=== PATIENT | male | born 1960 | race Caucasian/White ===

== ENCOUNTER 2016-11-19 16:34 | Emergency (ER) | payer MEDICARE, OTHER ==
[~2016-11-19] VITALS: Ht 185.4 cm; Wt 77.1 kg
[~2016-11-19 16:34] MED LIST: BACLOFEN10 MG PO; CARDIZEM60 MG PO; CARISOPRODOL350 MG PO; CARVEDILOL6.25 MG PO; DURAGESIC1 EAC1 TD; EPZICOM TABLET1 EACH PO; ESZOPICLONE3 MG PO; FENTANYL1 EAC1 TD; HYDROCODON-ACE1 EAC8 PO; MELOXICAM15 MG PO; METHYLPREDNISOLO4 M1 PO; NICOTINE PATCH1 EACH TD; NORVIR100 MG PO; OMEPRAZOLE20 MG PO; OXYCODONE HCL5 MG PO; PREZISTA400 MG PO; PREZISTA800 MG PO; RESTORIL15 MG PO; SOMA350 MG PO; TEMAZEPAM15 MG PO; TRIUMEQ TABLET1 EACH PO; ZOFRAN ODT4 MG SL
[2016-11-19] MEDS ORDERED: CARVEDILOL6.25 MG PO (16:46)
[2016-11-19] MEDS ORDERED: COREG3.125 MG PO (18:08)
--- NOTE | 2016-11-20 18:36 | EKG ---
[facility] [address] [place] [address] Signed Normal sinus rhythm with sinus arrhythmia Normal ECG When compared with ECG of 19-MAR-2016 01:03, Vent. rate has increased BY 42 BPM Confirmed by JOHNNIE RAMOS MD ([id number]) on 11/20/2016 6:36:34 PM Electronically Signed By: JOHNNIE RAMOS MD 11/20/16 1836 PATIENT NAME: RONANLEATHAKAYLEE THOMPSON Electrocardiogram DATE OF : 62 PHYSICIAN: JOHNNIE RAMOS MD REPORT #: [id number] REPORT IS CONFIDENTIAL AND NOT TO BE RELEASED WITHOUT AUTHORIZATION
== END 2016-11-19 18:20 | disposition home or self-care (01) ==
LOC: ED 16:34
DX: R07.2 Precordial pain (principal); I48.91 Unspecified atrial fibrillation; Z21 Asymptomatic human immunodeficiency virus [HIV] infection status; F17.200 Nicotine dependence, unspecified, uncomplicated; Z88.8 Allergy status to other drugs, medicaments and biological substances; Z79.891 Long term (current) use of opiate analgesic; Z79.899 Other long term (current) drug therapy
CPT/HCPCS: 71010; 80053; 84484; 85025; 93005; 93010; 96361; 96374; 99284; J2405; J7030

== ENCOUNTER 2017-01-09 15:14 | Emergency (ER) | payer MEDICARE, OTHER ==
[~2017-01-09] VITALS: Ht 185.4 cm; Wt 77.1 kg
[~2017-01-09 15:14] MED LIST changes: +COREG3.125 MG PO
[2017-01-09] MEDS ORDERED: TIZANIDINE HCL2 MG PO (15:25)
[2017-01-09] MEDS ORDERED: CYANOCOBAL1000 MCG/M IM (15:27)
== END 2017-01-09 17:08 | disposition home or self-care (01) ==
LOC: ED 15:14
DX: R10.12 Left upper quadrant pain (principal); B20 Human immunodeficiency virus [HIV] disease; I48.91 Unspecified atrial fibrillation; F17.200 Nicotine dependence, unspecified, uncomplicated; Z88.8 Allergy status to other drugs, medicaments and biological substances; Z79.899 Other long term (current) drug therapy
CPT/HCPCS: 74000; 80053; 83690; 85025; 96374; 99283; J2405

== ENCOUNTER 2017-04-22 20:20 | Emergency (ER) | payer MEDICARE, OTHER ==
[~2017-04-22] VITALS: Ht 185.4 cm; Wt 69.8 kg
[~2017-04-22 20:20] MED LIST changes: +CYANOCOBAL1000 MCG/M IM; +TIZANIDINE HCL2 MG PO
[2017-04-22] MEDS ORDERED: ZENPEP DR 20,01 EACH PO (20:35)
[2017-04-22] MEDS ORDERED: MIRTAZAPINE30 MG PO (20:35)
[2017-04-22] MEDS ORDERED: AUGMENTIN 875-1 EACH PO (22:32)
== END 2017-04-22 22:54 | disposition home or self-care (01) ==
LOC: ED 20:20
DX: K57.92 Diverticulitis of intestine, part unspecified, without perforation or abscess without bleeding (principal); I48.91 Unspecified atrial fibrillation; F17.200 Nicotine dependence, unspecified, uncomplicated; Z88.8 Allergy status to other drugs, medicaments and biological substances; Z79.899 Other long term (current) drug therapy
CPT/HCPCS: 74177; 80053; 81001; 83690; 85025; 96360; 99284; J7030; Q9967

== ENCOUNTER 2017-07-28 17:11 | Emergency (ER) | payer MEDICARE, OTHER ==
[~2017-07-28] VITALS: Ht 185.4 cm; Wt 74.8 kg
[~2017-07-28 17:11] MED LIST changes: +AUGMENTIN 875-1 EACH PO; +MIRTAZAPINE30 MG PO; +ZENPEP DR 20,01 EACH PO
--- NOTE | 2017-07-29 18:31 | EKG ---
[facility] [address] [facility] [place] [address] Signed Normal sinus rhythm Normal ECG When compared with ECG of 19-NOV-2016 16:42, No significant change was found Confirmed by RADHA JARAMILLO MD ([id number]) on 07/29/2017 6:31:01 PM Electronically Signed By: RADHA JARAMILLO MD 07/29/17 183 PATIENT NAME: LEATHA FERRARO DONNA Electrocardiogram DATE OF : 62 PHYSICIAN: RADHA JARAMILLO MD REPORT #: [id number] REPORT IS CONFIDENTIAL AND NOT TO BE RELEASED WITHOUT AUTHORIZATION
== END 2017-07-28 19:26 | disposition home or self-care (01) ==
LOC: ED 17:11
DX: R07.89 Other chest pain (principal); B20 Human immunodeficiency virus [HIV] disease; F17.200 Nicotine dependence, unspecified, uncomplicated; Z88.6 Allergy status to analgesic agent; Z88.8 Allergy status to other drugs, medicaments and biological substances; Z79.899 Other long term (current) drug therapy
CPT/HCPCS: 71045; 80053; 84484; 85025; 85379; 85610; 93005; 93010; 99284

== ENCOUNTER 2018-06-17 13:18 | Emergency (ER) | payer MEDICARE, OTHER ==
[~2018-06-17] VITALS: Ht 185.4 cm; Wt 74.8 kg
[2018-06-17] MEDS ORDERED: LOMOTIL TABLET1 EACH PO (17:58)
== END 2018-06-17 18:22 | disposition home or self-care (01) ==
LOC: ED 13:18
DX: K52.9 Noninfective gastroenteritis and colitis, unspecified (principal); B20 Human immunodeficiency virus [HIV] disease; I48.0 Paroxysmal atrial fibrillation; F17.200 Nicotine dependence, unspecified, uncomplicated; Z96.643 Presence of artificial hip joint, bilateral; Z88.8 Allergy status to other drugs, medicaments and biological substances; Z79.899 Other long term (current) drug therapy
CPT/HCPCS: 36415; 80053; 83690; 85025; 96361; 96374; 99284-25; J2405; J7030

== ENCOUNTER 2019-02-23 14:02 | Emergency (ER) | payer MEDICARE, OTHER, MEDICAID ==
[~2019-02-23] VITALS: Ht 185.4 cm; Wt 72.6 kg
--- OUTSIDE RECORDS SUMMARY | ~2019-02-23 | XMS | Encounter Summary ---
Demographics + + + | Address | [address] | | | [place] [address] | + + + | Home Phone | | + + + | Preferred Language | Unknown | + + + | Marital Status | Single | + + + | Congregational Affiliation | 1041 | + + + | Race | Unknown | + + + | Ethnic Group | Unknown | + + + Author + + + | Author | [facility] | | | and [place] | + + + | Organization | [facility] | | | and [place] | + + + | Address | Unknown | + + + | Phone | Unavailable | + + + Support + + +---------+ + | Name | Relationship | Address | Phone | + + +---------+ + | Dallas Gomez | ECON | Unknown | | + + +---------+ + | Tabatha Gomez | ECON | Unknown | | + + +---------+ + Care Team Providers + +------+ + | Care Steam Tank Operator Name | Role | Phone | + +------+ + | Robert Garcia MD | PCP | Unavailable | + +------+ + Encounter Details +--------+---------+ + + + | Date | Type | Department | Care Team | Description | +--------+---------+ + + + | 12/02/ | Surgery | [facility] | [facility] | LEFT EXTRACTION | | 2019 | | [facility] | MD [address] | CATARACT WITH LENS | | | | [address] | [place], [place] | IMPLANT | | | | [place], [place] | [address] | | | | | [phone] | | | | | | [phone] | | | +--------+---------+ + + + Social History + + + +--------+ + | Tobacco Use | Types | Packs/Day | Years | Date | | | | | Used | | + + + +--------+ + | Current Some Day | Cigarettes | 0.25 | 46 | Quit: 09/2017 | | Smoker | | | | | + + + +--------+ + + +---+---+---+ | Smokeless Tobacco: | | | | | Never Used | | | | + +---+---+---+ + + | Comments: STILL SMOKES 2 CIGS PER WEEK | + + + + +---------+ + | Alcohol Use | Drinks/We | oz/Week | Comments | | | ek | | | + + +---------+ + | Yes | 1 | 0.6 | RARELY | | | Standard | | | | | drinks or | | | | | | | | | | equivalen | | | | | t | | | + + +---------+ + + + + | Sex Assigned at | Date Recorded | | | | + + + | Not on file | | + + + + + + + | Job Start Date | Occupation | Industry | + + + + | Not on file | Not on file | Not on file | + + + + + + + + | Travel History | Travel Start | Travel End | + + + + + + | No recent travel history available. | + + documented as of this encounter Last Filed Vital Signs + + + + | Vital Sign | Reading | Time Taken | + + + + | Blood Pressure | 112/87 | 12/02/20181320 PDT | + + + + | Pulse | 54 | 12/02/20181320 PDT | + + + + | Temperature | 36.3 C (97.3 F) | 12/02/20181320 PDT | + + + + | Respiratory Rate | 16 | 12/02/20181320 PDT | + + + + | Oxygen Saturation | 100% | 12/02/20181320 PDT | + + + + | Inhaled Oxygen | - | - | | Concentration | | | + + + + | Weight | 74.8 kg (165 lb) | 12/02/20181129 PDT | + + + + | Height | 185.4 cm (6' 1") | 12/02/2018 1130 PDT | + + + + | Body Mass Index | 21.77 | 12/02/20180 PDT | + + + + documented in this encounter Functional Status + + + + | Functional Status | Response | Date of Assessment | + + + + | Are you deaf or do you have serious | No | 03/10/2015 | | difficulty hearing? | | | + + + + | Are you blind or do you have serious | No | 03/10/2015 | | difficulty seeing, even when wearing | | | | glasses? | | | + + + + | Do you have serious difficulty walking or | Yes | 03/10/2015 | | climbing stairs? (5 years old or older) | | | + + + + | Do you have difficulty dressing or bathing? | No | 03/10/2015 | | (5 years old or older) | | | + + + + | Because of a physical, mental, or emotional | Yes | 03/10/2015 | | condition, do you have difficulty doing | | | | errands alone such as visiting a doctor's | | | | office or shopping? [15 years old or | | | | older)] | | | + + + + + + + + | Cognitive Status | Response | Date of Assessment | + + + + | Because of a physical, mental, or emotional | No | 03/10/2015 | | condition, do you have serious difficulty | | | | concentrating, remembering, or making | | | | decisions? (5 years old or older) | | | + + + + documented as of this encounter Discharge Instructions Instructions Pedro Nassar RN - 12/02/2018 Recovery After Procedural Sedation (Adult) You have been given medicine by vein to make you sleep during your procedure. This may have included both a pain medicine and sleeping medicine. Most of the effects have worn off. But you may still have some drowsiness for the next 6 to 8 hours. Home care Follow these guidelines when you get home: For the next 8 hours, you should be watched by a responsible adult. This person should m liliana sure your condition is not getting worse. Don't drink any alcoholfor the next [address], operate dangerous machinery,make important business or personal decisions , or sign legal documentsduring the next 24 hours. Note: Your healthcare provider may tell you not to take any medicine by mouth for pain or s leep in the next 4 hours. These medicines may react with the medicines you were given in the hospital. This could cause a much stronger response than usual. Follow-up care Follow up with your healthcare provider if you are not alert and back to your usual level o f activity within 12 hours. When to seek medical advice Call your healthcare provider right away if any of these occur: Drowsiness gets worse Weakness or dizziness gets worse Repeated vomiting You can't be awakened Date Last Reviewed: 03/04/201619992308-2623 [employer]. [address] [place] [address], [place] [address]. All righ ts reserved. This information is not intended as a substitute for professional medical care. Always follow your healthcare professional's instructions. INSTRUCTIONS FOR AFTER YOUR CATARACT SURGERY 1. Your doctor will tell you when to remove your patch and when to use drops if t hey are needed. Expect your vision may be blurry and that your eye may be red and/or puffy. You may experience some double vision. You may take Tylenol or Ibuprofen the night of surger y if you experience some discomfort or pain. 2. No heavy lifting (25 pound maximum), no strenuous activity, no bending over, a nd no eye makeup for one week. Avoid eye rubbing. 3. Expect a small amount of irritation and itching in the eye, especially during the first week after surgery. If you experience significant pain or decreasing vision, pleas e call the office immediately. If this is after normal business hours, tell the answering se kelli that you recently had cataract surgery and need to speak with the doctor. 4. There are no limitations on walking, reading, watching TV, working on the comp uter, shaving, bathing, or shampooing your hair. Do take care to avoid getting dirty water i n your eye though. 5. We suggest using sunglasses when you are outside. You may use your current gla sses or readers for reading. 6. Eye drops are sometimes needed after surgery. If instructed to use them, pleas e do so to ensure proper healing. Do not discontinue drops until directed by the doctor. If you are running out, call our office or your pharmacy for a refill. 7. If you have any questions or concerns at all, please call our office at . YOUR APPOINTMENT WITH YOUR SURGEON TOMORROW. Please bring your surgery kit and all drops to each follow-up appointment, including other eye drops you may be taking. MD Yuliya Alanis MD Daniel Hanson, Elissa Yeager Joseluis | [place] [address] | P: [phone] | F: [phone] | BESOS documented in this encounter Medications at Time of Discharge + + + +---------+ + + | Medication | Sig | Dispensed | Refills | Start | End Date | | | | | | Date | | + + + +---------+ + + | | Take 1 tablet by | | 0 | | | | abacavir-dolutegravi | mouth Daily. | | | | | | r-lamiVUDine | | | | | | | (TRIUMEQ) 600-50-300 | | | | | | | mg per tablet | | | | | | + + + +---------+ + + | amoxicillin | Take 2,000 mg by | | 0 | 02/02/20 | | | (AMOXIL) 500 MG | mouth See Admin | | | 18 | | | capsule | Instructions. 1999 | | | | | | | MG PRIOR TO DENTAL | | | | | | | PROCEDURES | | | | | + + + +---------+ + + | | Take 2 capsules by | 180 | 5 | 10/04/19 | | | uiwimlu-fuztwb-wgfyy | mouth 3 times daily | capsule | | 17 | | | ase (ZENPEP 20) | (with meals). | | | | | | 109,000-20,000-68,00 | | | | | | | 0 units per | | | | | | | capsuleIndications: | | | | | | | Pancreatic | | | | | | | insufficiency | | | | | | + + + +---------+ + + | bisacodyl | Take 5 mg by mouth | | 0 | | | | (DULCOLAX) 5 mg EC | Daily as needed for | | | | | | tablet | Constipation. | | | | | + + + +---------+ + + | Blood Glucose | | | 0 | 03/25/20 | | | Monitoring Suppl | | | | 16 | | | (ONE TOUCH ULTRA 2) | | | | | | | W/DEVICE KIT | | | | | | + + + +---------+ + + | carvedilol (COREG) | Take 6.25 mg by | | 0 | 02/02/20 | | | 6.25 mg tablet | mouth 2 times daily | | | 18 | | | | (with breakfast & | | | | | | | dinner). | | | | | + + + +---------+ + + | diphenhydrAMINE | Take 25 mg by mouth | | 0 | | | | (BENADRYL) 25 mg | every 6 hours as | | | | | | tablet | needed for | | | | | | | Allergies. | | | | | + + + +---------+ + + | | Take 1 tablet by | | 0 | 06/19/19 | | | diphenoxylate-atropi | mouth 4 times daily | | | 19 | | | ne (LOMOTIL) | as needed for | | | | | | 2.5-0.025 mg per | Diarrhea. | | | | | | tablet | | | | | | + + + +---------+ + + | eszopiclone | Take 3 mg by mouth | | 0 | | | | (LUNESTA) 3 MG TABS | nightly as needed | | | | | | | for Insomnia. | | | | | + + + +---------+ + + | hydrocortisone | Apply 1 Application | | 11 | 03/26/20 | | | (WESTCORT) 0.2 % | topically Daily as | | | 16 | | | cream | needed. | | | | | + + + +---------+ + + | MAGNESIUM CHLORIDE | Take 250 mg by mouth | | 0 | | | | PO | Daily. | | | | | + + + +---------+ + + | Multiple | Take 1 tablet by | | 0 | | | | Vitamins-Minerals | mouth Daily. | | | | | | (CENTRUM SILVER | | | | | | | ULTRA MENS PO) | | | | | | + + + +---------+ + + | ondansetron | Take 1 tablet by | 60 | 3 | 06/10/19 | | | (ZOFRAN ODT) 8 mg | mouth every 8 hours | tablet | | 19 | | | disintegrating | as needed for | | | | | | tabletIndications: | Nausea. | | | | | | Chronic | | | | | | | pancreatitis, | | | | | | | unspecified | | | | | | | pancreatitis type | | | | | | | (HCC) | | | | | | + + + +---------+ + + | ONE TOUCH ULTRA | | | 3 | 03/26/20 | | | TEST strip | | | | 16 | | + + + +---------+ + + | LIANA BROWN | | | 3 | 03/26/20 | | | DEBBIE 33G MISC | | | | 16 | | + + + +---------+ + + | temazepam | Take 15 mg by mouth | | 5 | 01/22/20 | | | (RESTORIL) 15 mg | nightly as needed | | | 17 | | | capsule | for Insomnia. | | | | | + + + +---------+ + + | tiZANidine | Take 6 mg by mouth | | 0 | | | | (ZANAFLEX) 2 MG | nightly. | | | | | | tablet | | | | | | + + + +---------+ + + | cyanocobalamin | Take 1,000 mcg by | | 0 | | | | (VITAMIN B-12) 1000 | mouth Daily. | | | | 9 | | MCG tablet | | | | | | + + + +---------+ + + | | Take 1 tablet by | 20 | 0 | 02/16/20 | | | HYDROcodone-acetamin | mouth every 6 hours | tablet | | 19 | 9 | | ophen (NORCO) 5-325 | as needed for Pain | | | | | | mg per tablet | for up to 7 days. | | | | | + + + +---------+ + + | Potassium | Take 550 mg by mouth | | 0 | | | | Gluconate 550 MG | Daily (with | | | | 9 | | TABS | dinner). | | | | | + + + +---------+ + + | scopolamine | Place 1 patch onto | 4 patch | 0 | 02/16/20 | | | (TRANSDERM-SCOP) 1 | the skin every 72 | | | 19 | 9 | | mg/3 days patch | hours as needed (for | | | | | | | nausea) for up to 7 | | | | | | | days. At least 4 | | | | | | | hours before | | | | | | | event;do not cut. | | | | | | | Remove before | | | | | | | applying new patch. | | | | | + + + +---------+ + + documented as of this encounter Plan of Treatment Not on filedocumented as of this encounter Procedures + +--------+ + + + | Procedure Name | Priori | Date/Time | Associated Diagnosis | Comments | | | ty | | | | + +--------+ + + + | EXTRACTION CATARACT | | 12/02/2018 | Nuclear sclerotic | | | W/ OR W/O LENS | | 13:42 PDT | cataract of left eye | | | IMPLANT | | | | | + +--------+ + + + documented in this encounter Visit Diagnoses + + | Diagnosis | + + | Nuclear sclerotic cataract of left eye Senile nuclear sclerosis | + + documented in this encounter Administered Medications + +--------+---------+------+------+------+ | Medication Order | MAR | Action | Dose | Rate | Site | | | Action | Date | | | | + +--------+---------+------+------+------+ + +---+ | albuterol 2.5 mg/3 mL nebulizer | | | solution 2.5 mg 2.5 mg, | | | Nebulization, ONCE PRN, Wheezing, | | | Starting [facility] 12/02/18 at 1330, | | | For 1 dose, Notify anesthesia if | | | patient is wheezing and does not | | | have a history of asthma or COPD | | | or current smoking., | | | Recovery/Phase I | | + +---+ | | | + +---+ + +-------+ +--------+---+---+ | apraclonidine (IOPIDINE) 1 % | Given | 12/03/19 | 1 drop | | | | ophthalmic solution 1 drop 1 | | 19 12:14 | | | | | drop, Left Eye, EVERY 10 MIN, | | PDT | | | | | First dose on Thu12/02/18 at | | | | | | | 1215, For 2 doses, Pre-op | | | | | | + +-------+ +--------+---+---+ +-------+ +--------+---+---+ | Given | 12/03/19 | 1 drop | | | | | 19 12:06 | | | | | | PDT | | | | +-------+ +--------+---+---+ +---+---+ | | | +---+---+ + +-------+ + +---+ + | balanced salts sterile | Given | 12/03/19 | 1 | | Eye-Left | | ophthalmic irrigation solution | | 19 13:05 | Applicat | | | | PRN, Starting Thu12/02/18 at | | PDT | ion | | | | 1305, Intra-op | | | | | | + +-------+ + +---+ + +---+---+ | | | +---+---+ + +-------+ +--------+---+---+ | cyclopentolate (CYCLOGYL) 1% | Given | 12/03/19 | 1 drop | | | | ophthalmic solution 1 drop 1 | | 19 12:14 | | | | | drop, Left Eye, EVERY 10 MIN PRN, | | PDT | | | | | prep eye for procedure, Starting | | | | | | | [facility] 12/02/18 at 1157, For 3 | | | | | | | doses, Only give 3rd dose 10 | | | | | | | minutes later if pupil is not | | | | | | | dilated at least 6mm, Pre-op | | | | | | + +-------+ +--------+---+---+ +-------+ +--------+---+---+ | Given | 12/03/19 | 1 drop | | | | | 19 12:03 | | | | | | PDT | | | | +-------+ +--------+---+---+ + +---+ | | | + +---+ | dextrose 50% injection 12.5-25 | | | g 12.5-25 g, Intravenous, EVERY | | | 15 MIN PRN, Low Blood Sugar, Give | | | 12.5g (25 mL) IV if blood | | | glucose 50-69 mg/dL. Give 25g | | | (50 mL) IV if blood glucose < 50, | | | Starting [facility] 12/02/18 at 1157, | | | Repeat in 15 min if blood glucose | | | remains < 70 mg/dL. Repeat | | | blood glucose in 30 min once | | | blood glucose > 70., Pre-op | | + +---+ | | | + +---+ | dextrose 50% injection 12.5-25 | | | g 12.5-25 g, Intravenous, EVERY | | | 15 MIN PRN, Low Blood Sugar, For | | | hypoglycemia. Give 12.5g (25ml) | | | IV if blood glucose 50-69 | | | mg/dL. Give 25g (50ml) IV if | | | blood glucose < 50, Starting [facility] | | | 12/02/18 at 1330, Give over 2 min. | | | Repeat in 15 min if blood | | | glucose remains < 70 mg/dL. | | | Repeat blood glucose in 30 min | | | once blood glucose > 70., | | | Recovery/Phase I | | + +---+ | | | + +---+ + +-------+ +--------+---+ + | EPINEPHrine 1 mg/mL injection | Given | 12/03/19 | 0.4 mg | | Eye-Left | | PRN, Starting [facility] 12/02/18 at | | 19 13:05 | | | | | 1305, Intra-op | | PDT | | | | + +-------+ +--------+---+ + +---+---+ | | | +---+---+ + +-------+ +--------+---+---+ | flurbiprofen (OCUFEN) 0.03% | Given | 12/03/19 | 1 drop | | | | ophthalmic solution 1 drop 1 | | 19 12:14 | | | | | drop, Left Eye, EVERY 10 MIN, | | PDT | | | | | First dose on [facility] 12/02/18 at | | | | | | | 1215, For 2 doses, Pre-op | | | | | | + +-------+ +--------+---+---+ +-------+ +--------+---+---+ | Given | 12/03/19 | 1 drop | | | | | 19 12:03 | | | | | | PDT | | | | +-------+ +--------+---+---+ +---+---+ | | | +---+---+ + +-------+ +-------+---+---+ | hyaluronate & chondroitin | Given | 12/03/19 | 1 kit | | | | hyaluronate (DUOVISC) intraocular | | 19 13:05 | | | | | kit PRN, Starting [facility] 12/02/18 | | PDT | | | | | at 1305, Intra-op | | | | | | + +-------+ +-------+---+---+ +---+---+ | | | +---+---+ + +---------+ +---+-------+---+ | lactated ringers (LR) infusion | New Bag | 12/03/19 | | 100 | | | at 10-100 mL/hr, Intravenous, | | 19 12:51 | | mL/hr | | | CONTINUOUS, Starting [facility] 12/02/18 | | PDT | | | | | at 1215, TKO., Pre-op | | | | | | + +---------+ +---+-------+---+ +---+---+ | | | +---+---+ + +-------+ +------+---+ + | lidocaine (PF) 2% injection | Given | 12/03/19 | 1 mL | | Eye-Left | | PRN, Starting [facility] 12/02/18 at | | 19 13:10 | | | | | 1251, Intra-op | | PDT | | | | + +-------+ +------+---+ + +-------+ +-------+---+ + | Given | 12/03/19 | 5 mLs | | Eye-Left | | | 19 12:51 | | | | | | PDT | | | | +-------+ +-------+---+ + +---+---+ | | | +---+---+ + +-------+ +--------+---+ + | moxifloxacin (VIGAMOX) 0.5 % | Given | 12/03/19 | 0.5 mg | | Eye-Left | | intracameral injection PRN, | | 19 13:13 | | | | | Starting [facility] 12/02/18 at 1313, | | PDT | | | | | Intra-op | | | | | | + +-------+ +--------+---+ + + +---+ | | | + +---+ | ondansetron (ZOFRAN) injection | | | 4 mg 4 mg, Intravenous, ONCE | | | PRN, Nausea, Starting [facility] 12/02/18 | | | at 1330, For 1 dose, | | | Recovery/Phase I | | + +---+ | | | + +---+ + +-------+ +--------+---+---+ | phenylephrine (MANPREET-SYNEPHRINE) | Given | 12/03/19 | 1 drop | | | | 2.5% ophthalmic solution 1 drop | | 19 12:14 | | | | | 1 drop, Left Eye, EVERY 10 MIN | | PDT | | | | | PRN, prep eye for procedure, | | | | | | | Starting [facility] 12/02/18 at 1157, For | | | | | | | 3 doses, Only give 3rd dose 10 | | | | | | | minutes later if pupil is not | | | | | | | dilated at least 6mm, Pre-op | | | | | | + +-------+ +--------+---+---+ +-------+ +--------+---+---+ | Given | 12/03/19 | 1 drop | | | | | 19 12:03 | | | | | | PDT | | | | +-------+ +--------+---+---+ +---+---+ | | | +---+---+ + +-------+ +---------+---+---+ | povidone-iodine 5 % ophthalmic | Given | 12/03/19 | 2 drops | | | | solution PRN, Starting [facility] | | 19 12:54 | | | | | 12/02/18 at 1254, Intra-op | | PDT | | | | + +-------+ +---------+---+---+ +---+---+ | | | +---+---+ + +-------+ +--------+---+---+ | proparacaine (ALCAINE) 0.5% | Given | 12/03/19 | 1 drop | | | | ophthalmic solution 1 drop 1 | | 19 12:14 | | | | | drop, Left Eye, EVERY 10 MIN PRN, | | PDT | | | | | prep eye for procedure, Starting | | | | | | | [facility] 12/02/18 at 1157, For 3 | | | | | | | doses, Only give 3rd dose 10 | | | | | | | minutes later if pupil is not | | | | | | | dilated at least 6mm, Pre-op | | | | | | + +-------+ +--------+---+---+ +-------+ +--------+---+---+ | Given | 12/03/19 | 1 drop | | | | | 19 12:03 | | | | | | PDT | | | | +-------+ +--------+---+---+ +---+---+ | | | +---+---+ + +-------+ +------+---+ + | triamcinolone acetonide | Given | 12/03/19 | 5 mg | | Eye-Left | | (KENALOG-10) 10 mg/mL injection | | 19 13:13 | | | | | PRN, Starting [facility] 12/02/18 at | | PDT | | | | | 1313, Intra-op | | | | | | + +-------+ +------+---+ + +---+---+ | | | +---+---+ + +-------+ +--------+---+---+ | tropicamide (MYDRIACYL) 1% | Given | 12/03/19 | 1 drop | | | | ophthalmic solution 1 drop 1 | | 19 12:14 | | | | | drop, Left Eye, EVERY 10 MIN PRN, | | PDT | | | | | prep eye for procedure, Starting | | | | | | | [facility] 12/02/18 at 1157, For 3 | | | | | | | doses, Only give 3rd dose 10 | | | | | | | minutes later if pupil is not | | | | | | | dilated at least 6mm, Pre-op | | | | | | + +-------+ +--------+---+---+ +-------+ +--------+---+---+ | Given | 12/03/19 | 1 drop | | | | | 19 12:03 | | | | | | PDT | | | | +-------+ +--------+---+---+ +---+---+ | | | +---+---+ documented in this encounter
--- OUTSIDE RECORDS SUMMARY | ~2019-02-23 | XMS | Encounter Summary ---
Demographics + + + | Address | [address] | | | [place] [address] | + + + | Home Phone | | + + + | Preferred Language | Unknown | + + + | Marital Status | Single | + + + | Caodaism Affiliation | 1041 | + + + | Race | Unknown | + + + | Ethnic Group | Unknown | + + + Author + + + | Author | [facility] | | | and [place] | + + + | Organization | [facility] | | | and [...] Team Providers + +------+ + | Care Customer Experience Retail Clerk Name | Role | Phone | + +------+ + | Robert Garcia MD | PCP | Unavailable | + +------+ + Encounter Details +--------+ + + + + | Date | Type | Department | Care Team | Description | +--------+ + + + + | 12/28/ | Orders Only | [facility] | Apollo Bran, | | | 2019 | | MED CTR PROVIDER | [address] | | | | | SURGICAL [address] | [place], [place] | | | | | [place], | [address] | | | | | [place] [address] | | | | | | [phone] | | | +--------+ + + + + Social History + + [...] + + documented as of this encounter Functional Status + + + [...] Not on filedocumented as of this encounter Visit Diagnoses Not on filedocumented in this encounter"
--- OUTSIDE RECORDS SUMMARY | ~2019-02-23 | XMS | Encounter Summary ---
Demographics + + + | Address | [address] | | | [place] [address] | + + + | Home Phone | | + + + | Preferred Language | Unknown | + + + | Marital Status | Single | + + + | Methodist Affiliation | 1041 | + + + | Race | Unknown | + + + | Ethnic Group | Unknown | + + + Author + + + | Author | [facility] | | | and Yu[place] | + + + | Organization | [facility] | | | and [...] Team Providers + +------+ + | Care Public Space Attendant Name | Role | Phone | + [...] | | | [place], | [address] | | | | | [place] [address] | | | | | | [phone] | | | +--------+ + + + [...]
--- OUTSIDE RECORDS SUMMARY | ~2019-02-23 | XMS | Encounter Summary ---
Demographics + + + | Address | [address] | | | [place] [address] | + + + | Home Phone | | + + + | Preferred Language | Unknown | + + + | Marital Status | Single | + + + | Confucianism Affiliation | 1041 | + + + | Race | Unknown | + + + | Ethnic Group | Unknown | + + + Author + + + | Author | [facility] | | | and [place] | + + + | Organization | [facility] | | | [...] Team Providers + +------+ + | Care Neurology Stroke Physician Name | Role | Phone | + +------+ + | Bj Baldwin MD | PCP | Unavailable | + +------+ + Reason for Referral Evaluate & Treat (Routine) + + + + + + + | Status | Reason | Specialty | Diagnoses / | Referred By | Referred To | | | | | Procedures | Contact | Contact | + + + + + + + | Pending | Specialty | Gastroenterol | Diagnoses | Idania, | Idania, | | Review | Services | ogy | Chronic | MD Shay | MD Shay | | | Required | | pancreatitis | [address] | | | | | , | [address] | | | | | unspecified | [place], | [place], [place] | | | | | pancreatitis | [place] [address] | [address] Phone: | | | | | type (HCC) | Phone: | [phone] | | | | | Procedures | [phone] | Fax: | | | | | Fax: | [phone] | | | | | ERCP- 4 | [phone] | | | | | | month - [place] | | | + + + + + + + Encounter Details +--------+ + + + + | Date | Type | Department | Care Team | Description | +--------+ + + + + | 02/15/ | Hospital | [facility] | Shay Emerson MD | Chronic | | 2019 | Encounter | [facility] | [address] [place] | pancreatitis, | | | | INTRA OP [address] | [address] [place] | unspecified | | | | [address] [place] | [address] | pancreatitis type | | | | [address] | | (HCC); Other chronic | | | | [phone] | | pancreatitis (HCC) | +--------+ + + + + Social [...] | | + +---+---+---+ + + | Tobacco Cessation: Ready to Quit: Yes; Counseling Given: Yes | | Comments: STILL SMOKES 2-4 CIGS PER WEEK | + + + + +---------+ + | Alcohol Use | Drinks/We | oz/Week | Comments | | | ek | | | + + +---------+ + | Not Currently | 1 | 0.6 | | | | Standard | | | [...] + + + | Blood Pressure | 129/66 | 02/15/2019899 PDT | + + + + | Pulse | 87 | 02/15/2019899 PDT | + + + + | Temperature | 36.7 C (98 F) | 02/15/2019835 PDT | + + + + | Respiratory Rate | 16 | 02/15/2019899 PDT | + + + + | Oxygen Saturation | 100% | 02/15/2019899 PDT | + + + + | Inhaled Oxygen | - | - | | Concentration | | | + + + + | Weight | 73.9 kg (163 lb) | 02/15/2019710 PDT | + + + + | Height | 182.9 cm (6') | 02/15/2019710 PDT | + + + + | Body Mass Index | 22.11 | 02/15/2019710 PDT | + + + + documented [...] + + documented as of this encounter Medications at Time of Discharge [...] 18 | | | capsule | Instructions. 2000 | | | | | | | MG PRIOR TO DENTAL | | | | | | | PROCEDURES | | | | | + + + +---------+ + + | | Take 2 capsules by | 180 | 5 | 10/04/19 | | | mdfyege-ynmbvl-bctrt | mouth 3 times daily | capsule [...] + + + +---------+ + + | ONETOUCH DELICA | | | 3 | 03/26/20 | | | LANCETS 33G MISC | | | | 16 [...] + + documented as of this encounter Progress Notes Yaakov Davis RN - 02/15/2019 09 PDTDr Magdalene in to talk with pt and family. Electro nically signed by Yaakov Davis RN at 02/15/2019 9:30 Layne Paige RN - 02/15/2019 0906 PDTPt did well in recovery post procedure. Hr mostly stayed in the 60-80. 1-2 times hr dropped to 25-36 but for very short period. bp maintained during that itme. Pt will follow u p with md after. Electronically signed by: Layne Chowdary RN 02/15/2019 9:08 Layne Paige RN - 0906 PDTAVS discussed w/pt and ride home. Denies nausea and pain. PIV d/c'd. Feels comfortable w/plan. Belongings gathered, nothing missing. No other issues. MD in to see. D/C to home. Electronically signed by: Layne Chowdary RN 02/15/2019 9:06 documented in this encou nter Plan of Treatment +-------+--------+ + + | Name | Priori | Associated Diagnoses | Order Schedule | | | ty | | | +-------+--------+ + + | *ERCP | Routin | Chronic | Ordered: 02/15/2019 | | | e | pancreatitis, | | | | | unspecified | | | | | pancreatitis type | | | | | (HCC) | | +-------+--------+ + + documented as of this encounter Procedures + +--------+ + + + | Procedure Name | Priori | Date/Time | Associated Diagnosis | Comments | | | ty | | | | + +--------+ + + + | FL ERCP PANCREAS | Routin | 02/15/2019 | Other chronic | Results for this | | ONLY | e | 8:32 PDT | pancreatitis (HCC) | procedure are in the | | | | | | results section. | + +--------+ + + + | ENDOSCOPIC | | 02/15/2019 | Chronic | | | RETROGRADE | | 8:15 PDT | pancreatitis, | | | CHOLANGIOPANREATOG | | | unspecified | | | | | | pancreatitis type | | | | | | (HCC) | | + +--------+ + + + +---+--------+ | | | | | Specia | | | l | | | Needs | | | Ga, | | | RAD | +---+--------+ + +--------+ +---+ + | POC GLUCOSE | Routin | 02/15/2019 | | Results for this | | | e | 7:26 PDT | | procedure are in the | | | | | | results section. | + +--------+ +---+ + | ERCP | Routin | 02/15/2019 | | Results for this | | | e | 7:14 PDT | | procedure are in the | | | | | | results section. | + +--------+ +---+ + documented in this encounter Results [place] ERCP Pancreas Only (02/15/2019 8:32 PDT) + + | Specimen | + + | | + + + + + | Narrative | Performed At | + + + | ERCP PANCREAS CLINICAL INFORMATION: Intraoperative | [facility] | | pancreatic stent replacement. COMPARISON: [place] ERCP PANCREAS ONLY | | | (08/17/2018); [place] ERCP PANCREAS ONLY (03/12/2018); [place] ERCP PANCREAS ONLY | | | (06/26/2017); FINDINGS: Fluoro Time: | | | 1 minute(s)17 seconds. Number of images: 1 IMPRESSION: | | | Fluoroscopic document Signed by: Connor Ford Christopher | | | Sign Date/Time: 02/15/2019 4:21 PM | | + + + + + | Procedure Note | + + | Roderick Vega Results In - 02/15/2019 1625 PDT | | ERCP PANCREAS | | | | CLINICAL INFORMATION: | | Intraoperative pancreatic stent replacement. | | | | COMPARISON: | | [place] ERCP PANCREAS ONLY (08/17/2018); [place] ERCP PANCREAS ONLY (03/12/2018); | | [place] ERCP PANCREAS ONLY (06/26/2017); | | | | FINDINGS: | | | | | | Fluoro Time: 1 minute(s)17 seconds. Number of images: 1 | | | | IMPRESSION: | | Fluoroscopic document | | | | | | | | | | Signed by: Connor Ford Christopher | | Sign Date/Time: 02/15/2019 4:21 PM | + + + +---------+ + + | Performing | Address | City/State/Zipcode | Phone Number | | Organization | | | | + +---------+ + + | [facility] | | | | + +---------+ + + POC Glucose (02/15/2019 7:26 PDT) + + + + --+ + | Component | Value | Ref Range | Performed | Pathologist | | | | | At | Signature | + + + + --+ + | Glucose, | 76Comment: Performed by | 65 - 99 mg/dL | [facility] | | | POC | [facility] [address], | | [place] | | | | [place] [address] | | HEART | | | |Performed by [facility] [address], [place] [address] | | MEDICAL | | | | | | CENTER | | | | | | LABORATORY | | | | | | CERNER | | + + + + --+ + + + | Specimen | + + | Blood | + + + + + + + | Performing | Address | City/State/Zipcode | Phone Number | | Organization | | | | + + + + + | [facility] | [address] | [place] [address] | | | [facility] | | | | | [place] | | | | + + + + + ERCP (02/15/2019 7:14 PDT) + + | Specimen | + + | | + + + + + | Narrative | Performed At | + + + | [place] | [place] | | [facility] | [facility] | | [facility] | | | Patient Name: Arcenio Gomez Procedure | | | Date: 02/15/2019 7:14 AMMRN: | | | [id number] Account Number: | | | [id number] of : 1960 Note | | | Status: FinalizedAttending MD: SHAY EMERSON MD | | | | | | Procedure Type: | | | ERCPIndications: For therapy of chronic | | | pancreatitisPatient Profile: Patient with a PD stricture | | | secondary to chronic | | | pancreatitis and a small | | | neuroendocrine tumor. Here for | | | stent | | | exchange.Referring: BJ BALDWIN, | | | MDMedicines: Monitored Anesthesia | | | CareComplications: No immediate | | | complications. | | | Procedure: Pre-Anesthesia | | | Assessment: - Prior to the procedure, a History and Physical | | | was performed, and patient medications and allergies were | | | reviewed. The patient's tolerance of previous anesthesia was | | | also reviewed. The risks and benefits of the procedure and | | | the sedation options and risks were discussed with the | | | patient. All questions were answered, and informed consent was | | | obtained. Prior Anticoagulants: The patient has taken no | | | previous anticoagulant or antiplatelet agents. ASA Grade | | | Assessment: III - A patient with severe systemic disease. | | | After reviewing the risks and benefits, the patient was | | | deemed in satisfactory condition to undergo the procedure. - | | | The patient was placed in left lateral decubitus position. | | | After informed consent was obtained including risks, benefits and | | | alternatives, the scope was passed under direct vision. | | | Throughout the procedure, the patient's blood pressure, | | | pulse, and oxygen saturations were monitored continuously. | | | The Duodenoscope was introduced through the mouth, and | | | advanced to the duodenum and used to inject contrast into the | | | ventral pancreatic duct. The ERCP was accomplished without | | | difficulty. The patient tolerated the procedure | | | well. | | | | | | Findings: A aircraft engine specialist film of the abdomen | | | was obtained. The esophagus was successfully intubated under | | | direct vision. The scope was advanced to a normal major | | | papilla in the descending duodenum without detailed examination of the | | | pharynx, larynx and associated structures, and upper GI | | | tract. The upper GI tract was grossly normal. A PD stent was | | | seen in place. Using a snare loop, this was removed. Deep | | | pancreatic cannulation was achieved using an ERCP cannula | | | loaded with a 0.035 inch guidewire. Contrast was injected and | | | I personally interpreted all radiological images. Stricture | | | is again visualized in the distal pancreatic head region. Upstream to | | | that, the pancreatic duct was dilated to 4-5 mm in size. No | | | filling defects were seen. Balloon sweeps were done which did | | | not deliver any stone or sludge. Occlusion pancreatogram | | | also did not show any filling defects. Then, a 7 Kazakh by 7 | | | cm single pigtail barbed pancreatic duct stent was | | | successfully placed into the PD. Good flow of pancreatic | | | juices was seen and procedure terminated. Total fluoroscopy exposure | | | time was 1 minute and 17 | | | seconds. | | | | | | Impression: 1. Persistent PD | | | stricture in the head of the pancreas secondary to | | | compression from a small neuroendocrine tumor 2. Successful | | | exchange of PD | | | stent | | | | | | Recommendation: - Patient has a contact | | | number available for emergencies. The signs and symptoms of | | | potential delayed complications were discussed with the | | | patient. Return to normal activities tomorrow. Written discharge | | | instructions were provided to the patient. - Resume | | | previous diet. - Continue present medications. - | | | Repeat ERCP in 4 months to exchange | | | stent. | | | | | | SHAY EMERSON MD02/15/2019 | | | 8:54:19 AMThis report has been signed electronically. Note Initiated | | | On: 02/15/2019 7:14 AMNumber of Addenda: 0 [place] [facility] | | | [facility] | | + + + + +---------+ + + | Performing | Address | City/State/Zipcode | Phone Number | | Organization | | | | + +---------+ + + | [place] | | | | + +---------+ + + documented in this encounter Visit Diagnoses + + | Diagnosis | + + | Chronic pancreatitis, unspecified pancreatitis type (HCC) | + + documented in this encounter Admitting Diagnoses + + | Diagnosis | + + | Chronic pancreatitis, unspecified pancreatitis type (HCC) | + + documented in this encounter Administered Medications + +--------+ +--------+------+------+ | Medication Order | MAR | Action | Dose | Rate | Site | | | Action | Date | | | | + +--------+ +--------+------+------+ | indomethacin (INDOCIN) | Given | 02/16/20 | 100 mg | | | | suppository PRN, Starting Tue | | 19 8:30 | | | | | 02/15/19 at 0830 | | PDT | | | | + +--------+ +--------+------+------+ +---+---+ | | | +---+---+ + +---------+ +--------+-------+---+ | lactated ringers (LR) bolus | New Bag | 02/16/20 | 1,000 | 1000 | | | 1,000 mL 1,000 mL, Intravenous, | | 19 7:40 | mLs | mL/hr | | | Administer over 1 Hours, ONCE, | | PDT | | | | | 02/15/19 at 0730, For 1 dose, | | | | | | | DO NOT ADMINISTER LR IVF BOLUS | | | | | | | TO PTS WITH CARDIAC OR RENAL | | | | | | | HISTORY UNTIL CLEARED BY MD | | | | | | | FIRST, Pre-op | | | | | | + +---------+ +--------+-------+---+ +---+---+ | | | +---+---+ + +---------+ +---+---+---+ | lactated ringers (LR) infusion | New Bag | 02/16/20 | | | | | at 100 mL/hr, Intravenous, | | 19 8:03 | | | | | CONTINUOUS, Starting 02/15/19 | | PDT | | | | | at 0730, Pre-op | | | | | | + +---------+ +---+---+---+ +---+---+ | | | +---+---+ + +---------+ +---------+---+ + | scopolamine (TRANSDERM-SCOP) 1 | Patch | 02/16/20 | 1 patch | | Ear-Behi | | mg/3 days 1 patch 1 patch, | Applied | 19 7:58 | | | nd Right | | Transdermal, ONCE, 02/15/19 at | | PDT | | | | | 0815, For 1 dose, If prophylaxis | | | | | | | fails, do not repeat dose. Use | | | | | | | drug from a different class. Each | | | | | | | patch is designed to deliver 1 | | | | | | | mg over 3 days. DO NOT CUT | | | | | | | patch., Pre-op | | | | | | + +---------+ +---------+---+ + +---+---+ | | | +---+---+ documented in this encounter"
--- OUTSIDE RECORDS SUMMARY | ~2019-02-23 | XMS | Encounter Summary ---
Demographics + + + | Address | [address] | | | [place] [address] | + + + | Home Phone | | + + + | Preferred Language | Unknown | + + + | Marital Status | Single | + + + | Catholic Affiliation | 1041 | + + + | Race | Unknown | + + + | Ethnic Group | Unknown | + + + Author + + + | Author | [facility] | | | and [place] | + + + | Organization | [facility] | | | [...] Team Providers + +------+ + | Care Register Repairer Name | Role | Phone | + +------+ + | Bj Baldwin MD | PCP | Unavailable | + +------+ + Encounter Details +--------+---------+ + + + | Date | Type | Department | Care Team | Description | +--------+---------+ + + + | 02/15/ | Surgery | [facility] | | ENDOSCOPIC | | 2019 | | [facility] | | RETROGRADE | | | | INTRA [address] | | CHOLANGIOPANREATOG | | | | [place] | | | | | | [address] | | | | | | [phone] | | | +--------+---------+ + + + [...] + | Blood Pressure | 129/66 | 02/15/2019 0900 PDT | + + + + | [...] | 5 | 10/04/19 | | | wdlhwiv-iyvlez-evkvd | mouth 3 times daily | capsule [...] as of this encounter Progress Notes Yaakov Davis, GENO - 02/15/2019 0929 [address] Magdalene in to talk with pt and [...] signed by: Layne Chowdary RN 02/15/2019 9:08 iller, Layne Gross RN - 0906 PDTAVS discussed w/pt and [...] | Procedure Note | + + | Gary, Rad Results In - 02/15/2019 1625 PDT | [...] | [facility] | | | POC | [facility] [address], | | [place] | | | | [place] [address] | | HEART | | | |Performed by [facility] [address], [place] [address] | | MEDICAL | | | | [...] + + + + + | [facility] | [address] | [place] [address] | | | [facility] | | | | | [place] | | | | + + + + + ERCP (02/15/2019 7:14 PDT) + + | Specimen | + + | | + + + + + | Narrative | Performed At | + + + | [place] | [place] | | [facility] | [facility] | | [facility] | | | Patient Name: Arcenio Gomez Procedure | | | Date: 02/15/2019 7:14 AMMRN: | | | [id number] Account Number: | | | [id number] of : 1960 Note | | | Status: FinalizedAttending MD: SHAY ORR MD | | | | | | [...] | | | | | Findings: A bedspread seamer film of the abdomen | | | [...] show any filling defects. Then, a 7 Kittitian by 7 | | | cm single [...] | | | | | | SHAY ORR MD02/15/2019 | | | 8:54:19 AMNevins report has been signed electronically. Note Initiated | | | On: 02/15/2019 7:14 AMNumber of Addenda: 0 [place] [facility] | | | [facility] | | + + [...]
--- OUTSIDE RECORDS SUMMARY | ~2019-02-23 | XMS | Encounter Summary ---
Demographics + + + | Address | [address] | | | [place] [address] | + + + | Home Phone | | + + + | Preferred Language | Unknown | + + + | Marital Status | Single | + + + | Spiritism Affiliation | 1041 | + + + | Race | Unknown | + + + | Ethnic Group | Unknown | + + + Author + + + | Author | [facility] | | | and [place] | + + + | Organization | [facility] | | | [...] Team Providers + +------+ + | Care Rap Artist Name | Role | Phone | + +------+ + | Robert Garcia MD | PCP | Unavailable | + +------+ + Encounter Details +--------+ + + + + | Date | Type | Department | Care Team | Description | +--------+ + + + + | 02/15/ | Anesthesia | [facility] | Ken Smith, | | | 2019 | Event | [facility] | [address] | | | | | INTRA OP [address] | [place] [address] | | | | | [address] [place] | [phone] | | | | | [address] | | | | | | [phone] | | | +--------+ + + + + Anesthesia Record + + + + + | Procedure Name | Responsible | Anesthesia Start | Anesthesia Stop Time | | | Anesthesiologist | Time | | + + + + + | ENDOSCOPIC | Ken Smith MD | 02/15/19802 | 02/15/19839 | | RETROGRADE | | | | | CHOLANGIOPANREATOG | | | | | (N/A ) | | | | + + + + + +----+---+ + + | Da | T | Event | Comment | | te | i | | | | | m | | | | | e | | | +----+---+ + + | 10 | 0 | | | | /0 | 7 | | | | 1/ | 3 | | | | 20 | 2 | | | | 19 | | | | +----+---+ + + | | 0 | An Checkout | Pre-use anesthesia machine/equipment checkout. | | | 7 | | | | | 3 | | | | | 2 | | | +----+---+ + + | | 0 | An Start | Reassessment prior to anesthesia induction/procedure. | | | 8 | | | | | 0 | | | | | 3 | | | +----+---+ + + | | 0 | An | Premedicated with glyco and lido for bigeminy, converted to SR, | | | 8 | Induction | medicated with ephedrine to increase HR. Will proceed with | | | 0 | | anesthesia. | | | 9 | | | +----+---+ + + | | 0 | Pre-Procedu | | | | 8 | ral Timeout | | | | 1 | Completed | | | | 4 | | | +----+---+ + + | | 0 | First | | | | 8 | Inc/Proc St | | | | 1 | | | | | 6 | | | +----+---+ + + | | 0 | An Stop | Patient handed off to recovery nurse. | | | 4 | | | | | 0 | | | +----+---+ + + +------+ | Meds | +------+ + + + | Name | Total | + + + | lidocaine 2% | 100 mg | + + + | propofol | 40 mg | + + + | propofol | 188.45 mg | + + + | glycopyrrolate | 0.2 mg | + + + | ePHEDrine | 10 mg | + + + | lactated ringers (LR) infusion | 400 mL | + + + + + | Name | + + | N2O Flow Rate (L/Min) | + + | O2 Flow Rate (L/Min) | + + | Insp O2 | + + | Exp N2O | + + | Air Flow Rate (L/Min) | + + + + | No blood administrations on file. | + + +--------+ + + + | Type | Details | Placement | Removal | +--------+ + + + | Periph | 02/15/19; 0737; Right; Wrist; | 02/15/19736 by | 02/15/19931 by | | eral | ertp-dle-vviaaj catheter system; | Layne Chowdary RN | Yaakov Davis RN | | IV | 22 gauge, 1 in length; Other (see | | | | | comment); distraction, | | | | | intradermal injection; 02/15/19; | | | | | 0932 | | | +--------+ + + + documented in this encounter Social History + + + +--------+ + [...] +---+---+---+ + + | Comments: STILL SMOKES 2-4 CIGS PER [...] Visit Diagnoses Not on filedocumented in this encounter Administered Medications + +--------+ +-------+------+------+ | Medication Order | MAR | Action | Dose | Rate | Site | | | Action | Date | | | | + +--------+ +-------+------+------+ | ePHEDrine 50 mg/mL injection | Given | 02/16/20 | 10 mg | | | | Intravenous, PRN, Starting Tue | | 19 8:09 | | | | | 02/15/19 at 0809, Anesthesia | | PDT | | | | | Intra-op | | | | | | + +--------+ +-------+------+------+ +---+---+ | | | +---+---+ + +-------+ +--------+---+---+ | glycopyrrolate (ROBINUL) | Given | 02/16/20 | 0.2 mg | | | | injection Intravenous, PRN, | | 19 8:06 | | | | | Starting 02/15/19 at 0806, | | PDT | | | | | Anesthesia Intra-op | | | | | | + +-------+ +--------+---+---+ +---+---+ | | | +---+---+ + +---------+ [...] +---+---+---+ +---+---+ | | | +---+---+ + +-------+ +--------+---+---+ | lidocaine (PF) 2% injection | Given | 02/16/20 | 100 mg | | | | Intravenous, PRN, Starting Tue | | 19 8:06 | | | | | 02/15/19 at 0806, Anesthesia | | PDT | | | | | Intra-op | | | | | | + +-------+ +--------+---+---+ +---+---+ | | | +---+---+ + +---------+ + +-------+---+ | propofol (DIPRIVAN) injection | New Bag | 02/16/20 | 150 | 66.5 | | | Intravenous, CONTINUOUS PRN, | | 19 8:09 | mcg/kg/m | mL/hr | | | Starting 02/15/19 at 0809, | | PDT | in | | | | Anesthesia Intra-op | | | | | | + +---------+ + +-------+---+ +---+---+ | | | +---+---+ + +-------+ +-------+---+---+ | propofol (DIPRIVAN) injection | Given | 02/16/20 | 20 mg | | | | Intravenous, PRN, Starting Tue | | 19 8:15 | | | | | 02/15/19 at 0811, Anesthesia | | PDT | | | | | Intra-op | | | | | | + +-------+ +-------+---+---+ +-------+ +-------+---+---+ | Given | 02/16/20 | 20 mg | | | | | 19 8:11 | | | | | | PDT | | | | +-------+ +-------+---+---+ +---+---+ | | | +---+---+ documented in this encounter"
--- OUTSIDE RECORDS SUMMARY | ~2019-02-23 | XMS | Encounter Summary ---
Demographics + + + | Address | [address] | | | [place] [address] | + + + | Home Phone | | + + + | Preferred Language | Unknown | + + + | Marital Status | Single | + + + | Sabianism Affiliation | 1041 | + + + | Race | Unknown | + + + | Ethnic Group | Unknown | + + + Author + + + | Author | [facility] | | | and Yuvalana | + + + | Organization | [facility] | | | [...] Team Providers + +------+ + | Care Earth Moving Technician Name | Role | Phone | + +------+ + | Robert Garcia MD | PCP | Unavailable | + +------+ + Encounter Details +--------+ + + + + | Date | Type | Department | Care Team | Description | +--------+ + + + + | 12/02/ | Hospital | [facility] | Apollo Bran, | Nuclear sclerotic | | 2019 | Encounter | MED CTR OR INTRA OP | MD [address] | cataract of left eye | | | | [address] | [place], [place] | (Primary Dx) | | | | [place], [place] | [address] | | | | | [address] | | | | | | [phone] | | | +--------+ + + + [...] Height | 185.4 cm (6' 1") | 12/02/20181129 PDT | + + + + | Body Mass Index | 21.77 | 12/02/20181129 PDT | + + + + documented [...] You can't be awakened Date Last Reviewed: 03/04/201619997326-9912 [employer]. [address] [place] [address], [place] [address]. All righ ts reserved. This information is [...] you experience significant pain or decreasing vision, umberto e call the office immediately. If this [...] after surgery. If instructed to use them, plezack e do so to ensure proper healing. [...] Hanson, Elissa Yeager Joseluis | [place] [address] | P: [phone] | F: [phone] | [email or web address] documented in this encounter Medications at Time [...] | 5 | 10/04/19 | | | tmuirjv-gkrgzb-kwqqc | mouth 3 times daily | capsule [...] | 20 | 0 | 02/16/20 | 10/08/201 | | HYDROcodone-acetamin | mouth every 6 [...] | Nuclear sclerotic cataract of left eye - Primary Senile nuclear sclerosis | + + documented [...] ONCE PRN, Wheezing, | | | Starting [facility] 12/02/18 at 1330, | | | For [...] | | | | First dose on [facility] 12/02/18 at | | | | | [...] | | | | | | | [facility] 12/02/18 at 1157, For 3 | | [...] glucose < 50, | | | Starting [facility] 12/02/18 at 1157, | | | Repeat [...] | + +---+ + +-------+ +--------+---+---+ | flurbiprofen (OCUFEN) 0.03% | Given | 12/03/19 | 1 drop | | | | ophthalmic solution 1 drop 1 | | 19 12:14 | | | | | drop, Left Eye, EVERY 10 MIN, | | PDT | | | | | First dose on [facility] 12/02/18 at | | | | | [...] | | | | + +---------+ +---+-------+---+ + +---+ | | | + +---+ | ondansetron (ZOFRAN) injection | | | 4 mg 4 mg, Intravenous, ONCE | | | PRN, Nausea, Starting [facility] 12/02/18 | | | at 1330, For [...] | | | | | | Starting [facility] 12/02/18 at 1157, For | | | [...] | | | | | | | [facility] 12/02/18 at 1157, For 3 | | [...] | | | | | | | [facility] 12/02/18 at 1157, For 3 | | [...]
--- OUTSIDE RECORDS SUMMARY | ~2019-02-23 | XMS | Encounter Summary ---
Demographics + + + | Address | [address] | | | [place] [address] | + + + | Home Phone | | + + + | Preferred Language | Unknown | + + + | Marital Status | Single | + + + | Anabaptist Affiliation | 1041 | + + + | Race | Unknown | + + + | Ethnic Group | Unknown | + + + Author + + + | Author | [facility] | | | and Yuvalana | + + + | Organization | [facility] | | | [...] Team Providers + +------+ + | Care Ct Tech Name | Role | Phone | + +------+ + | Robert Garcia MD | PCP | Unavailable | + +------+ + Encounter Details +--------+ + + + + | Date | Type | Department | Care Team | Description | +--------+ + + + + | 12/30/ | Hospital | [facility] | Apollo Bran, | Nuclear sclerotic | | 2019 | Encounter | MED CTR OR INTRA OP | [address] | cataract of right | | | | [address] | [place], [place] | eye (Primary Dx) | | | | [place], [place] | [address] | | | | | [address] | | | | | | [phone] | | | +--------+ + + + [...] + + + | Blood Pressure | 146/79 | 12/30/2018 1045 PDT | + + + + | Pulse | 64 | 12/30/20181044 PDT | + + + + | Temperature | 36.7 C (98.1 F) | 12/30/20181034 PDT | + + + + | Respiratory Rate | 14 | 12/30/20181034 PDT | + + + + | Oxygen Saturation | 100% | 12/30/20185 PDT | + + + + | Inhaled Oxygen | - | - | | Concentration | | | + + + + | Weight | 76 kg (167 lb 8.8 | 12/30/2018857 PDT | | | oz) | | + + + + | Height | 185.4 cm (6' 1") | 12/30/2018857 PDT | + + + + | Body Mass Index | 22.11 | 12/30/2018857 PDT | + + + + documented [...] as of this encounter Discharge Instructions Instructions Apollo Bran MD - 12/30/2018 INSTRUCTIONS FOR AFTER YOUR CATARACT SURGERY 1. [...] normal business hours, tell the answering se rvice that you recently had cataract surgery and [...] after surgery. If instructed to use them, umberto busch do so to ensure proper healing. Do [...] taking. MD Yuliya Alanis MD Daniel Hanson, MD David A. Lewis, M D [address] | [place] [address] | P: [phone] | F: [phone] | [facility] documented in this encounter Medications at Time [...] | 5 | 10/04/19 | | | baqjbsb-byessg-mdqmt | mouth 3 times daily | capsule [...] + + | EXTRACTION CATARACT | | 12/30/2018 | Nuclear sclerotic | | | W/ OR W/O LENS | | 11:08 PDT | cataract of right | | | IMPLANT | | | eye | | + +--------+ + + + documented in this encounter Visit Diagnoses + + | Diagnosis | + + | Nuclear sclerotic cataract of right eye - Primary Senile nuclear sclerosis | + + documented in this encounter Administered Medications + +--------+ +--------+------+------+ | Medication Order | MAR | Action | Dose | Rate | Site | | | Action | Date | | | | + +--------+ +--------+------+------+ | apraclonidine (IOPIDINE) 1 % | Given | 12/31/19 | 1 drop | | | | ophthalmic solution 1 drop 1 | | 19 9:16 | | | | | drop, Right Eye, EVERY 10 MIN, | | PDT | | | | | First dose on [facility] 12/30/18 at | | | | | | | 0915, For 2 doses, Pre-op | | | | | | + +--------+ +--------+------+------+ +-------+ +--------+---+---+ | Given | 12/31/19 | 1 drop | | | | | 19 9:05 | | | | | | PDT | | | | +-------+ +--------+---+---+ +---+---+ | | | +---+---+ + +-------+ +--------+---+---+ | cyclopentolate (CYCLOGYL) 1% | Given | 12/31/19 | 1 drop | | | | ophthalmic solution 1 drop 1 | | 19 9:16 | | | | | drop, Right Eye, EVERY 10 MIN | | PDT | | | | | PRN, prep eye for procedure, | | | | | | | Starting [facility] 12/30/18 at 0854, For | | | | | | | 3 doses, Only give 3rd dose 10 | | | | | | | minutes later if pupil is not | | | | | | | dilated at least 6mm, Pre-op | | | | | | + +-------+ +--------+---+---+ +-------+ +--------+---+---+ | Given | 12/31/19 | 1 drop | | | | | 19 9:05 | | | | | | PDT [...] glucose < 50, | | | Starting [facility] 12/30/18 at 0854, | | | Repeat in 15 min if blood glucose | | | remains < 70 mg/dL. Repeat | | | blood glucose in 30 min once | | | blood glucose > 70., Pre-op | | + +---+ | | | + +---+ + +-------+ +--------+---+---+ | flurbiprofen (OCUFEN) 0.03% | Given | 12/31/19 | 1 drop | | | | ophthalmic solution 1 drop 1 | | 19 9:16 | | | | | drop, Right Eye, EVERY 10 MIN, | | PDT | | | | | First dose on [facility] 12/30/18 at | | | | | | | 0915, For 2 doses, Pre-op | | | | | | + +-------+ +--------+---+---+ +-------+ +--------+---+---+ | Given | 12/31/19 | 1 drop | | | | | 19 9:05 | | | | | | PDT | | | | +-------+ +--------+---+---+ +---+---+ | | | +---+---+ + + + +---+---+---+ | lactated ringers (LR) infusion | Continue | 12/31/19 | | | | | at 10-100 mL/hr, Intravenous, | d by | 19 10:00 | | | | | CONTINUOUS, Starting [facility] 12/30/18 | Anesthes | PDT | | | | | at 0915, TKO., Pre-op | ia | | | | | + + + +---+---+---+ +---------+ +---+-------+---+ | New Bag | 12/31/19 | | 100 | | | | 19 9:23 | | mL/hr | | | | PDT | | | | +---------+ +---+-------+---+ +---+---+ | | | +---+---+ + +-------+ +--------+---+---+ | phenylephrine (MANPREET-SYNEPHRINE) | Given | 12/31/19 | 1 drop | | | | 2.5% ophthalmic solution 1 drop | | 19 9:16 | | | | | 1 drop, Right Eye, EVERY 10 MIN | | PDT | | | | | PRN, prep eye for procedure, | | | | | | | Starting [facility] 12/30/18 at 0854, For | | | | | | | 3 doses, Only give 3rd dose 10 | | | | | | | minutes later if pupil is not | | | | | | | dilated at least 6mm, Pre-op | | | | | | + +-------+ +--------+---+---+ +-------+ +--------+---+---+ | Given | 12/31/19 | 1 drop | | | | | 19 9:05 | | | | | | PDT | | | | +-------+ +--------+---+---+ +---+---+ | | | +---+---+ + +-------+ +--------+---+---+ | proparacaine (ALCAINE) 0.5% | Given | 12/31/19 | 1 drop | | | | ophthalmic solution 1 drop 1 | | 19 9:16 | | | | | drop, Right Eye, EVERY 10 MIN | | PDT | | | | | PRN, prep eye for procedure, | | | | | | | Starting [facility] 12/30/18 at 0854, For | | | | | | | 3 doses, Only give 3rd dose 10 | | | | | | | minutes later if pupil is not | | | | | | | dilated at least 6mm, Pre-op | | | | | | + +-------+ +--------+---+---+ +-------+ +--------+---+---+ | Given | 12/31/19 | 1 drop | | | | | 19 9:05 | | | | | | PDT | | | | +-------+ +--------+---+---+ +---+---+ | | | +---+---+ + +-------+ +--------+---+---+ | tropicamide (MYDRIACYL) 1% | Given | 12/31/19 | 1 drop | | | | ophthalmic solution 1 drop 1 | | 19 9:16 | | | | | drop, Right Eye, EVERY 10 MIN | | PDT | | | | | PRN, prep eye for procedure, | | | | | | | Starting [facility] 12/30/18 at 0854, For | | | | | | [...]
--- OUTSIDE RECORDS SUMMARY | ~2019-02-23 | XMS | Encounter Summary ---
Demographics + + + | Address | [address] | | | [place] [address] | + + + | Home Phone | | + + + | Preferred Language | Unknown | + + + | Marital Status | Single | + + + | Baptism Affiliation | 1041 | + + + | Race | Unknown | + + + | Ethnic Group | Unknown | + + + Author + + + | Author | [facility] | | | and Yuvalana | + + + | Organization | [facility] | | | and [...] Team Providers + +------+ + | Care Finisher Machine Name | Role | Phone | + +------+ + | Robert Garcia MD | PCP | Unavailable | + +------+ + Encounter Details +--------+---------+ + + + | Date | Type | Department | Care Team | Description | +--------+---------+ + + + | 12/30/ | Surgery | [facility] | [facility], | RIGHT EXTRACTION | | 2019 | | MED CTR OR INTRA OP | MD [address] | CATARACT WITH LENS | | | | [address] | [place], [place] | IMPLANT | | | | [place], [place] | [address] | | | | | [address] | | | | | | [phone] | | | +--------+---------+ + + + [...] + | Blood Pressure | 146/79 | 12/30/20181044 PDT | + + + + | Pulse | 64 | 12/30/20181044 PDT | + + + + | Temperature | 36.7 C (98.1 F) | 12/30/20181034 PDT | + + + + | Respiratory Rate | 14 | 12/30/20181034 PDT | + + + + | Oxygen Saturation | 100% | 12/30/20181044 PDT | + + + [...] walking, reading, watching TV, working on the [employer], shaving, bathing, or shampooing your hair. Do [...] Lewis, M D [address] | [place] [address] | P: [phone] | F: [phone] | [employer] documented in this encounter Medications at Time [...] | 5 | 10/04/19 | | | vzqarvw-gxctkx-dvgey | mouth 3 times daily | capsule [...] | Nuclear sclerotic cataract of right eye Senile nuclear sclerosis | + + [...] | | | | First dose on [facility] 12/30/18 at | | | | [...] | balanced salts sterile | Given | 12/31/19 | 1 | | Surgical | | ophthalmic irrigation solution | | 19 10:18 | Applicat | | Site | | PRN, Starting [facility] 12/30/18 at | | PDT | ion | | | | 1018, Intra-op | | | | | | [...] | | | | | | Starting [facility] 12/30/18 at 0854, For | | [...] glucose < 50, | | | Starting [facility] 12/30/18 at 0854, | | | Repeat in 15 min if blood glucose | | | remains < 70 mg/dL. Repeat | | | blood glucose in 30 min once | | | blood glucose > 70., Pre-op | | + +---+ | | | + +---+ + +-------+ +--------+---+ + | EPINEPHrine 1 mg/mL injection | Given | 12/31/19 | 0.4 mg | | Surgical | | PRN, Starting [facility] 12/30/18 at | | 19 10:18 | | | Site | | 1018, Intra-op | | PDT | | | [...] | | | | First dose on Thu12/30/18 at | | | | | | [...] | hyaluronate & chondroitin | Given | 12/31/19 | 1 kit | | | | hyaluronate (DUOVISC) intraocular | | 19 10:18 | | | | | kit PRN, Starting Thu12/30/18 | | PDT | | | | | at 1018, Intra-op | | | | | | + +-------+ +-------+---+---+ +---+---+ | | | +---+---+ + + [...] +---+---+ | | | +---+---+ + +-------+ +-------+---+ + | lidocaine (PF) 2% injection | Given | 12/31/19 | 5 mLs | | Surgical | | PRN, Starting [facility] 12/30/18 at | | 19 10:05 | | | Site | | 1005, Intra-op | | PDT | | | | + +-------+ +-------+---+ + +---+---+ | | | +---+---+ + +-------+ +--------+---+ + | moxifloxacin (VIGAMOX) 0.5 % | Given | 12/31/19 | 0.5 mg | | Eye-Righ | | intracameral injection PRN, | | 19 10:19 | | | t | | Starting [facility] 12/30/18 at 1019, | | PDT | | | | [...] | | | | | Starting [facility] 12/30/18 at 0854, For | | | [...] +---+---+ | | | +---+---+ + +-------+ +---------+---+ + | povidone-iodine 5 % ophthalmic | Given | 12/31/19 | 2 drops | | Surgical | | solution PRN, Starting [facility] | | 19 10:06 | | | Site | | 12/30/18 at 1006, Intra-op | | PDT | | | | + +-------+ +---------+---+ + +---+---+ | | | +---+---+ + [...] | | | | | | Starting [facility] 12/30/18 at 0854, For | | [...] + | triamcinolone acetonide | Given | 12/31/19 | 5 mg | | Surgical | | (KENALOG-10) 10 mg/mL injection | | 19 10:19 | | | Site | | PRN, Starting [facility] 12/30/18 at | | PDT | | | | | 1019, Intra-op | | | | | | [...] | | | | | | Starting [facility] 12/30/18 at 0854, For | | [...]
--- OUTSIDE RECORDS SUMMARY | ~2019-02-23 | XMS | Encounter Summary ---
Demographics + + + | Address | [address] | | | [place] [address] | + + + | Home Phone | | + + + | Preferred Language | Unknown | + + + | Marital Status | Single | + + + | Latter-Day Affiliation | 1041 | + + + | Race | Unknown | + + + | Ethnic Group | Unknown | + + + Author + + + | Author | [facility] | | | and Yuvalana | + + + | Organization | [facility] | | | and [...] Team Providers + +------+ + | Care Digital Artist Name | Role | Phone | + +------+ + | Robert Garcia MD | PCP | Unavailable | + +------+ + Encounter Details +--------+ + + + + | Date | Type | Department | Care Team | Description | +--------+ + + + + | 12/02/ | Hospital | [facility] | Apollo Bran, | Nuclear sclerotic | | 2019 | Encounter | MED CTR OR INTRA OP | MD [address] | cataract of left eye | | | | [address] | [place], [place] | (Primary Dx) | | | | [place], [place] | [address] | | | | | [address] | | | | | | [phone] | | | +--------+ + + + [...] You can't be awakened Date Last Reviewed: 03/04/201619994609-1216 [employer]. [address] [place] [address], [place] [address]. All righ ts reserved. This information is [...] Hanson, Elissa Yeager [address]uis | [place] [address] | P: [phone] | F: [phone] | [employer] documented in this encounter Medications at Time [...] | 5 | 10/04/19 | | | chthnif-ntkplo-lzvys | mouth 3 times daily | capsule [...] ONCE PRN, Wheezing, | | | Starting [facility] 12/02/18 at 1330, | | | [...] | | | | First dose on [facility] 12/02/18 at | | | | [...] | | | | | | | [facility] 12/02/18 at 1157, For 3 | [...] glucose < 50, | | | Starting [facility] 12/02/18 at 1157, | | | [...] | | | | | | Starting [facility] 12/02/18 at 1157, For | | [...] | | | | | | | [facility] 12/02/18 at 1157, For 3 | [...] | | | | | | | [facility] 12/02/18 at 1157, For 3 | [...]
--- OUTSIDE RECORDS SUMMARY | ~2019-02-23 | XMS | Encounter Summary ---
Demographics + + + | Address | [address] | | | [place] [address] | + + + | Home Phone | | + + + | Preferred Language | Unknown | + + + | Marital Status | Single | + + + | Tenriism Affiliation | 1041 | + + + | Race | Unknown | + + + | Ethnic Group | Unknown | + + + Author + + + | Author | [facility] | | | and Yuvalana | + + + | Organization | [facility] | | | [...] Team Providers + +------+ + | Care Door Person Name | Role | Phone | + [...] LENS | | | | [address] | [place], [place] | IMPLANT | | | | [place], [place] | [address] | | | | | [address] | | | | | | [phone] | | | +--------+---------+ + + + [...] walking, reading, watching TV, working on the [email or web address], shaving, bathing, or shampooing your hair. Do [...] Lewis, M D [address] | [place] [address] | P: [phone] | F: [phone] | [employer] documented in this encounter Medications at Time [...] | 5 | 10/04/19 | | | gcddnkx-taakyf-kcjyo | mouth 3 times daily | capsule [...] | | | | First dose on [facility] 12/30/18 at | | | | [...] | | Site | | PRN, Starting [facility] 12/30/18 at | | PDT | [...] | | | | | | Starting [facility] 12/30/18 at 0854, For | | [...] glucose < 50, | | | Starting [facility] 12/30/18 at 0854, | | | [...] | | Surgical | | PRN, Starting [facility] 12/30/18 at | | 19 10:18 [...] | | | t | | Starting [facility] 12/30/18 at 1019, | | PDT [...] | | | | | | Starting [facility] 12/30/18 at 0854, For | | [...] | | Site | | PRN, Starting [facility] 12/30/18 at | | PDT | [...] | | | | | | Starting [facility] 12/30/18 at 0854, For | | [...]
--- OUTSIDE RECORDS SUMMARY | ~2019-02-23 | XMS | Encounter Summary ---
Demographics + + + | Address | [address] | | | [place] [address] | + + + | Home Phone | | + + + | Preferred Language | Unknown | + + + | Marital Status | Single | + + + | Temple Affiliation | 1041 | + + + | Race | Unknown | + + + | Ethnic Group | Unknown | + + + Author + + + | Author | [facility] | | | and Yuvalana | + + + | Organization | [facility] | | [...] Team Providers + +------+ + | Care Human Resources Records Clerk Name | Role | Phone | + +------+ + | Robert Garcia MD | PCP | Unavailable | + +------+ + Encounter Details +--------+ + + + + | Date | Type | Department | Care Team | Description | +--------+ + + + + | 11/24/ | Orders Only | [facility] | Jose Emerson MD | Chronic | | 2019 | | and Pancreas GI | [address] [place] | pancreatitis, | | | | [address] | [address] [place] | unspecified | | | | [address] | [address] | pancreatitis type | | | | [place], [place] | | (HCC) (Primary Dx) | | | | [address] | | | | | | [phone] | | | +--------+ + + + + Social History + + + +--------+ + | Tobacco Use | Types | Packs/Day | Years | Date | | | | | Used | | + + + +--------+ + | Current Some Day | Cigarettes | 0.5 | 46 | Quit: 09/2017 | | [...] filedocumented as of this encounter Visit Diagnoses + + | Diagnosis | + + | Chronic pancreatitis, unspecified pancreatitis type (HCC) - Primary | + + documented in this encounter"
--- OUTSIDE RECORDS SUMMARY | ~2019-02-23 | XMS | Encounter Summary ---
Demographics + + + | Address | [address] | | | [place] [address] | + + + | Home Phone | | + + + | Preferred Language | Unknown | + + + | Marital Status | Single | + + + | Hindu Affiliation | 1041 | + + + | Race | Unknown | + + + | Ethnic Group | Unknown | + + + Author + + + | Author | [facility] | | | and Yuvalana | + + + | Organization | [facility] | | | [...] Team Providers + +------+ + | Care Spanner Operator Name | Role | Phone | [...] LENS | | | | [address] | [place], [place] | IMPLANT | | | | [place], [place] | [address] | | | | | [address] | | | | | | [phone] | | | +--------+---------+ + + + [...] You can't be awakened Date Last Reviewed: 03/04/201619993252-7857 [employer]. [address] [place] [address], [place] [address]. All righ ts reserved. This information is [...] Hanson, Elissa Yeager [address] | [place] [id number] | P: [phone] | F: [phone] | [employer] documented in this encounter Medications at Time [...] | 5 | 10/04/19 | | | vjdhmtk-dsnavh-ooteq | mouth 3 times daily | capsule [...] ONCE PRN, Wheezing, | | | Starting [facility] 12/02/18 at 1330, | | | [...] | | | | | | | [facility] 12/02/18 at 1157, For 3 | [...] | | | | First dose on [facility] 12/02/18 at | | | | [...] | | Eye-Left | | PRN, Starting [facility] 12/02/18 at | | 19 13:10 | [...] 13:13 | | | | | Starting [facility] 12/02/18 at 1313, | | PDT | | | | | Intra-op | | | | | | + +-------+ +--------+---+ + + +---+ | | | + +---+ | ondansetron (ZOFRAN) injection | | | 4 mg 4 mg, Intravenous, ONCE | | | PRN, Nausea, Starting [facility] 12/02/18 | | | at 1330, For [...] | | | | | | | [facility] 12/02/18 at 1157, For 3 | [...] | | | | | | | [facility] 12/02/18 at 1157, For 3 | [...]
--- OUTSIDE RECORDS SUMMARY | ~2019-02-23 | XMS | Clinical Summary ---
Demographics + + + | Address | [address] | | | [place] [address] | + + + | Home Phone | | + + + | Preferred Language | Unknown | + + + | Marital Status | Single | + + + | Scientologist Affiliation | 1041 | + + + | Race | Unknown | + + + | Ethnic Group | Unknown | + + + Author + + + | Author | [facility] | | | and [place] | + + + | Organization | [facility] | | | [...] Team Providers + +------+ + | Care Manufacturing Test Technician Name | Role | Phone | + +------+ + | Bj Garcia MD | PCP | Unavailable | + +------+ + Allergies + + + + + + | Active Allergy | Reactions | Severity | Noted | Comments | | | | | Date | | + + + + + + | Indomethacin | Other (See Comments) | | 02/15/20 | Only oral not | | | | | 15 | suppository Other | | | | | | reaction(s): GI | | | | | | Intolerance GI | | | | | | symptoms Indocin | | | | | | (indomethacin) | | | | | | Type:Drug; GI | | | | | | symptoms | + + + + + + | Metronidazole | Anaphylaxis | High | | | + + + + + + | Serotonin Reuptake | Other (See Comments) | High | | Grand mal seizures | | Inhibitors (Ssris) | | | | | + + + + + + Medications + + + +---------+------+------+-------+ | Medication | Sig | Dispensed | Refills | Star | End | Statu | | | | | | t | Date | s | | | | | | Date | | | + + + +---------+------+------+-------+ | | Take 1 tablet by | | 0 | | | Activ | | abacavir-dolutegravi | mouth Daily. | | | | | e | | r-lamiVUDine | | | | | | | | (TRIUMEQ) 600-50-300 | | | | | | | | mg per tablet | | | | | | | + + + +---------+------+------+-------+ | Multiple | Take 1 tablet by | | 0 | | | Activ | | Vitamins-Minerals | mouth Daily. | | | | | e | | (CENTRUM SILVER | | | | | | | | ULTRA MENS PO) | | | | | | | + + + +---------+------+------+-------+ | Blood Glucose | | | 0 | 11/0 | | Activ | | Monitoring Suppl | | | | 8/20 | | e | | (ONE TOUCH ULTRA 2) | | | | 16 | | | | W/DEVICE KIT | | | | | | | + + + +---------+------+------+-------+ | ONE TOUCH ULTRA | | | 3 | 11/0 | | Activ | | TEST strip | | | | 9/20 | | e | | | | | | 16 | | | + + + +---------+------+------+-------+ | hydrocortisone | Apply 1 Application | | 11 | 11/0 | | Activ | | (WESTCORT) 0.2 % | topically Daily as | | | 9/20 | | e | | cream | needed. | | | 16 | | | + + + +---------+------+------+-------+ | ONETOUCH DELICA | | | 3 | 11/0 | | Activ | | LANCJOSS 33G MISC | | | | 9/20 | | e | | | | | | 16 | | | + + + +---------+------+------+-------+ | | Take 2 capsules by | 180 | 5 | 05/1 | | Activ | | pyeuwtm-jdvtkd-lutmp | mouth 3 times daily | capsule | | 02/04 | | e | | ase (ZENPEP 20) | (with meals). | | | 17 | | | | 109,000-20,000-68,00 | | | | | | | | 0 units per | | | | | | | | capsuleIndications: | | | | | | | | Pancreatic | | | | | | | | insufficiency | | | | | | | + + + +---------+------+------+-------+ | diphenhydrAMINE | Take 25 mg by mouth | | 0 | | | Activ | | (BENADRYL) 25 mg | every 6 hours as | | | | | e | | tablet | needed for | | | | | | | | Allergies. | | | | | | + + + +---------+------+------+-------+ | MAGNESIUM CHLORIDE | Take 250 mg by mouth | | 0 | | | Activ | | PO | Daily. | | | | | e | + + + +---------+------+------+-------+ | tiZANidine | Take 6 mg by mouth | | 0 | | | Activ | | (ZANAFLEX) 2 MG | nightly. | | | | | e | | tablet | | | | | | | + + + +---------+------+------+-------+ | bisacodyl | Take 5 mg by mouth | | 0 | | | Activ | | (DULCOLAX) 5 mg EC | Daily as needed for | | | | | e | | tablet | Constipation. | | | | | | + + + +---------+------+------+-------+ | temazepam | Take 15 mg by mouth | | 5 | 09/0 | | Activ | | (RESTORIL) 15 mg | nightly as needed | | | 6/20 | | e | | capsule | for Insomnia. | | | 17 | | | + + + +---------+------+------+-------+ | amoxicillin | Take 2,000 mg by | | 0 | 09/1 | | Activ | | (AMOXIL) 500 MG | mouth See Admin | | | 12/04 | | e | | capsule | Instructions. 2000 | | | 18 | | | | | MG PRIOR TO DENTAL | | | | | | | | PROCEDURES | | | | | | + + + +---------+------+------+-------+ | carvedilol (COREG) | Take 6.25 mg by | | 0 | / | | Activ | | 6.25 mg tablet | mouth 2 times daily | | | 12/04 | | e | | | (with breakfast & | | | 18 | | | | | dinner). | | | | | | + + + +---------+------+------+-------+ | ondansetron | Take 1 tablet by | 60 | 3 | / | | Activ | | (ZOFRAN ODT) 8 mg | mouth every 8 hours | tablet | | 09/04 | | e | | disintegrating | as needed for | | | 19 | | | | tabletIndications: | Nausea. | | | | | | | Chronic | | | | | | | | pancreatitis, | | | | | | | | unspecified | | | | | | | | pancreatitis type | | | | | | | | ([facility]) | | | | | | | + + + +---------+------+------+-------+ | eszopiclone | Take 3 mg by mouth | | 0 | | | Activ | | (LUNESTA) 3 MG TABS | nightly as needed | | | | | e | | | for Insomnia. | | | | | | + + + +---------+------+------+-------+ | | Take 1 tablet by | | 0 | 02/0 | | Activ | | diphenoxylate-atropi | mouth 4 times daily | | | 2/20 | | e | | ne (LOMOTIL) | as needed for | | | 19 | | | | 2.5-0.025 mg per | Diarrhea. | | | | | | | tablet | | | | | | | + + + +---------+------+------+-------+ | Potassium | Take 550 mg by mouth | | 0 | | 09/3 | Disco | | Gluconate 550 MG | Daily (with | | | | 0/20 | ntinu | | TABS | dinner). | | | | 19 | ed | + + + +---------+------+------+-------+ | cyanocobalamin | Take 1,000 mcg by | | 0 | | 09/3 | Disco | | (VITAMIN B-12) 1000 | mouth Daily. | | | | 0/20 | ntinu | | MCG tablet | | | | | 19 | ed | + + + +---------+------+------+-------+ | | Take 1 tablet by | 20 | 0 | 10/0 | 10/0 | Expir | | HYDROcodone-acetamin | mouth every 6 hours | tablet | | 1/20 | 8/20 | ed | | ophen (NORCO) 5-325 | as needed for Pain | | | 19 | 19 | | | mg per tablet | for up to 7 days. | | | | | | + + + +---------+------+------+-------+ | scopolamine | Place 1 patch onto | 4 patch | 0 | 10/0 | 10/0 | Expir | | (TRANSDERM-SCOP) 1 | the skin every 72 | | | 1/20 | 8/20 | ed | | mg/3 days patch | hours as needed (for | | | 19 | 19 | | | | nausea) for up [...] new patch. | | | | | | + + + +---------+------+------+-------+ Active Problems + + + | Problem | Noted Date | + + + | Chronic pancreatitis, unspecified pancreatitis type | 11/25/2018 | + + + + + | Overview: Added automatically from request for surgery | | [id number] | + + + + + | Pancreatic mass | 06/06/2016 | + + + | Bilateral hand numbness | 05/05/2016 | + + + | Claustrophobia | 05/21/2015 | + + + | Cervical spondylosis | 09/15/2014 | + + + | SMOKER | | + + + | PSEUDOCYST, PANCREAS | | + + + | HIV INFECTION | | + + + | ALCOHOL ABUSE | | + + + | PANCREATITIS, CHRONIC | | + + + Encounters +--------+ + + + + | Date | Type | Specialty | Care Team | Description | +--------+ + + + + | 02/15/ | Emergency | Emergency Medicine | Toro Whitaker MD | Bradycardia, | | 2019 | | | | unspecified (Primary | | | | | | Dx) | +--------+ + + + + | 02/15/ | Surgery | | | ENDOSCOPIC | | 2018 | | | | RETROGRADE | | | | | | CHOLANGIOPANREATOG | +--------+ + + + + | 02/15/ | Anesthesia | | Ken Smith, | | | 2018 | Event | | MD | | +--------+ + + + + | 02/15/ | Hospital | | Shay Emerson MD | Chronic | | 2018 | Encounter | | | pancreatitis, | | | | | | unspecified | | | | | | pancreatitis type | | | | | | (HCC); Other chronic | | | | | | pancreatitis (HCC) | +--------+ + + + + | 12/30/ | Surgery | | Apollo Bran, | RIGHT EXTRACTION | | 2018 | | | MD | CATARACT WITH LENS | | | | | | IMPLANT | +--------+ + + + + | 12/30/ | Anesthesia | | Toro Cabrera MD | | | 2018 | Event | | | | +--------+ + + + + | 12/30/ | Hospital | | Apollo Bran, | Nuclear sclerotic | | 2018 | Encounter | | MD | cataract of right | | | | | | eye (Primary Dx) | +--------+ + + + + | 12/28/ | Orders Only | General Surgery | Apollo Bran, | | | 2018 | | | | | +--------+ + + + + | 12/02/ | Surgery | | Apollo Bran, | LEFT EXTRACTION | | 2018 | | | MD | CATARACT WITH LENS | | | | | | IMPLANT | +--------+ + + + + | 12/02/ | Anesthesia | | Eleazar Orr | | | 2018 | Event | | DO Marcello | | +--------+ + + + + | 12/02/ | Hospital | | Apollo Bran, | Nuclear sclerotic | | 2018 | Encounter | | MD | cataract of left eye | | | | | | (Primary Dx) | +--------+ + + + + | 12/01/ | Orders Only | General Surgery | Apollo Bran, | | | 2018 | | | MD | | +--------+ + + + + | 11/24/ | Orders Only | Liver and Pancreas | Shay Emerson MD | Chronic | | 2019 | | Surgery | | pancreatitis, | | | | | | unspecified | | | | | | pancreatitis type | | | | | | (HCC) (Primary Dx) | +--------+ + + + + from Last 3 Months Immunizations + + + + | Name | Dates Previously Given | Next Due | + + + + | HEP A, 2 DOSE | 05/03/2012, 11/06/2011, 03/05/2010 | | | (ADULT) | | | + + + + | HEP B, 3 DOSE | 05/03/2012, 01/07/2012, 11/06/2011, | | | (ADULT) | 03/05/2010 | | + + + + | INFLUENZA PF | 03/16/2015 | | | QUAD(PED/ADOL/ADULT) | | | | ,PSKT or VIAL | | | + + + + | INFLUENZA, | 05/03/2012, 04/21/2008 | | | UNSPECIFIED | | | | FORMULATION | | | + + + + | PNEUMOCOCCAL | 11/06/2011 | | | POLYSACCHARIDE | | | | 23-VALENT (PPSV23) | | | + + + + | PPD Test | 09/23/2011 | | + + + + | TDAP, (ADOL/ADULT) | 11/06/2011 | | + + + + Family History + + +------+ + | Medical History | Relation | Name | Comments | + + +------+ + | Heart disease | Brother | | | + + +------+ + | Heart disease | Father | | | + + +------+ + | Cancer | Maternal | | | | | Grandfath | | | | | er | | | + + +------+ + | Osteoarthritis | Paternal | | | | | Aunt | | | + + +------+ + | Diabetes | Paternal | | | | | Grandfath | | | | | er | | | + + +------+ + | Dementia | Paternal | | | | | Grandmoth | | | | | er | | | + + +------+ + | Osteoarthritis | Sister | | | + + +------+ + + +------+--------+ + | Relation | Name | Status | Comments | + +------+--------+ + | Brother | | | | + +------+--------+ + | Father | | | | + +------+--------+ + | Maternal Grandfather | | | | + +------+--------+ + | Paternal Aunt | | | | + +------+--------+ + | Paternal Grandfather | | | | + +------+--------+ + | Paternal Grandmother | | | | + +------+--------+ + | Sister | | | | + +------+--------+ + Social History + + + +--------+ [...] recent travel history available. | + + Last Filed Vital Signs + + + + | Vital Sign | Reading | Time Taken | + + + + | Blood Pressure | 128/71 | 02/15/20191433 PDT | + + + + | Pulse | 55 | 02/15/20191433 PDT | + + + + | Temperature | 36.9 C (98.5 F) | 02/15/20191138 PDT | + + + + | Respiratory Rate | 17 | 02/15/20191433 PDT | + + + + | Oxygen Saturation | 97% | 02/15/20191433 PDT | + + + + | Inhaled Oxygen | - | - | | Concentration | | | + + + + | Weight | 73.9 kg (163 lb) | 02/15/20191138 PDT | + + + + | Height | 182.9 cm (6') | 02/15/20191138 PDT | + + + + | Body Mass Index | 22.11 | 02/15/20191138 PDT | + + + + Plan of Treatment + + + + + | Health Maintenance | Due Date | Last Done | Comments | + + + + + | Hepatitis C | | | | | Screening | 1 | | | + + + + + | Vaccine: Zoster (1 | | | | | of 2) | 1 | | | + + + + + | Vaccine: | | 11/06/2011 | | | Pneumococcal 19-64 | 3 | | | | Highest Risk (2 of 3 | | | | | - PCV13) | | | | + + + + + | Adult Annual | | | | | Wellness Visit | 5 | | | + + + + + | Vaccine: Influenza | | 03/19/2018, 03/14/2016, | | | (#1) | 9 | 03/16/2015, Additional history | | | | | exists | | + + + + + | Vaccine: | | 11/06/2011 | | | Dtap/Tdap/Td (2 - | 2 | | | | Td) | | | | + + + + + | Colorectal Cancer | | 04/04/2016 | | | Screening | 6 | | | | (Colonoscopy) | | | | + + + + + Implants + +--------+--------+ +--------+--------+--------+ | Implanted | Type | Area | Manufacture | Device | Shelf | Model | | | | | r | | Expira | / | | | | | | Identi | tion | Serial | | | | | | fier | Date | / Lot | + +--------+--------+ +--------+--------+--------+ | Lens Tecnis Preloaded Pcb | Generi | Left: | ANTONIO | | 09/25/ | [id number] | | 25.5 - [id number]: | c | Eye | MEDICAL | | 2021 | 0255 | | Qty: 1 on 12/02/2018 by | | | [employer] - | | | /[id number] | | Apollo Bran MD | | | [place] | | | [id number] | | | | | | | | /N/A | + +--------+--------+ +--------+--------+--------+ | Lens Tecnis Preloaded Pcb | Generi | Right: | ANTONIO | | 09/15/ | [id number] | | 22.5 - [id number]: | c | Eye | MEDICAL | | 2021 | 0225 | | Qty: 1 on 12/30/2018 by | | | [employer] - | | | /[id number] | | Apollo Bran MD | | | [place] | | | [id number] | | | | | | | | / | + +--------+--------+ +--------+--------+--------+ | Stent Pancr Advnx Pgtl Lb 7f | Stent | Pancre | [place] | | | [id number] | | 7 - [id number]: Qty: | | as | SCIENTIFIC | | | 260 / | | 1 on 06/26/2017 | | | MACRINA - BSCI | | | /[id number] | | | | | | | | 995 | + +--------+--------+ +--------+--------+--------+ | Stent Pancr Advnx Pgtl Lb 7f | Stent | N/A: | [place] | | | [id number] | | 7 - [id number]: Qty: | | Pancre | SCIENTIFIC | | | 260 / | | 1 on 03/12/2018 | | as | MACRINA - BSCI | | | /[id number] | | | | | | | | 765 | + +--------+--------+ +--------+--------+--------+ | Stent Pancr Advnx Pgtl Lb 7f | Stent | N/A: | [place] | | 11/20/ | [id number] | | 7 - [id number]: Qty: | | Bile | SCIENTIFIC | | 2020 | 260 / | | 1 on 08/17/2018 by Idania, | | Duct | MACRINA - BSCI | | | /[id number] | | MD Shay | | | | | | 040 | + +--------+--------+ +--------+--------+--------+ | Stent Pancr Advnx Pgtl Lb 7f | Stent | N/A: | [place] | | | [id number] | | 7 - [id number]: Qty: | | Pancre | SCIENTIFIC | | | 260 / | | 1 on 02/15/2019 by Idania, | | as | [employer]CR[employer] - [employer] | | | / | | MD Shay | | | | | | | + +--------+--------+ +--------+--------+--------+ | Elisa Castorena Pls 1cc Aseptic | | N/A: | OSTEOTECH - | | 04/27/ | [id number] | | - [id number]: Qty: | | Spine | OSTT | | 2015 | | | 1 on 09/15/2014 by Delroy, | Yumiko Vazquez | | | | /[id number] | | Quan Gross DO | | gopi | | | | 2-096 | | | | | | | | / | + +--------+--------+ +--------+--------+--------+ | Allogft Lordtc Bone Sr | | N/A: | SPINALGRAFT | | 05/31/ | [id number] | | [id number] - [id number]: | | Spine | | | 2017 | | | Qty: 1 on 09/15/2014 by | | George | TECHNOLOGIE | | | /[id number] | | Quan Potts DO | | al | S - SPNL | | | 696 | | | | | | | | /[id number] | | | | | | | | 3767 | + +--------+--------+ +--------+--------+--------+ | Allogft Lordtc Bone Sr | | N/A: | SPINALGRAFT | | 06/19/ | [id number] | | [id number] - [id number]: | | Spine | | | 2018 | | | Qty: 1 on 09/15/2014 by | | George | TECHNOLOGIE | | | /[id number] | | Quan Potts DO | | al | S - SPNL | | | 603 | | | | | | | | /76046 | | | | | | | | 4544 | + +--------+--------+ +--------+--------+--------+ | Plate Kobe Hancock | | N/A: | [employer] - | | | [id number] | | 42.5mm - [id number]: | | Spine | MEDT | | | 2 / / | | Qty: 1 on 09/15/2014 by | | George | | | | | | Quan Potts DO | | al | | | | | + +--------+--------+ +--------+--------+--------+ | Screw Slf-Drl V/A 4.0x14mm - | | N/A: | SOFAMOR | | | [id number] | | [id number]: Qty: 4 on | | Spine | DANEK - DIV | | | 4 / / | | 09/15/2014 by Quan Potts | | George | [employer] | | | | | DO Renato | | al | - SFDK | | | | + +--------+--------+ +--------+--------+--------+ | Screw Slf-Drl V/A 4.0x16mm - | | N/A: | SOFAMOR | | | [id number] | | [id number]: Qty: 2 on | | Spine | DANEK - DIV | | | 6 / / | | 09/15/2014 by Quan Potts | | George | [employer] | | | | | DO Renato | | al | - SFDK | | | | + +--------+--------+ +--------+--------+--------+ | Imp Hip Fem Stem M/L Std 11mm | | Left: | CASI - | | 10/16/ | 00-771 | | - [id number]: Qty: 1 | | Hip | ZIMM | | 5 | 1-011- | | on 03/06/2015 by Michelle, | | | | | | 00 / | | Srinivas Johnson MD | | | | | | /[id number] | | | | | | | | 422 | + +--------+--------+ +--------+--------+--------+ | Imp Hip Fem Hd Cocr 38/-4mm - | | Left: | CASI - | | 02/15/ | 01.010 | | [id number]: Qty: 1 | | Hip | ZIMM | | 4 | 12.385 | | on 03/06/2015 by Srinivas Martinez | | | | | | / | | MD Elizabeth | | | | | | /[id number] | | | | | | | | 50 | + +--------+--------+ +--------+--------+--------+ | Imp Hip Tot Acet Shell Cnvg | | Left: | CASI - | | 07/07/ | 5360-0 | | 55 - [id number]: Qty: | | Hip | ZIMM | | 2023 | 0-055 | | 1 on 03/06/2015 by Michelle, | | | | | | / | | Srinivas Johnson MD | | | | | | /[id number] | | | | | | | | 320 | + +--------+--------+ +--------+--------+--------+ | Screw Bone Slf-Tp 4.5x30 - | | Left: | CASI - | | 11/04/ | [id number] | | [id number]: Qty: 1 on | | Hip | ZIMM | | 2030 | 530 / | | 03/06/2015 by Srinivas Martinez | | | | | | /[id number] | | MD Elizabeth | | | | | | 998 | + +--------+--------+ +--------+--------+--------+ | Imp Hip Acet Lnr Drasl 38x46 | | Left: | CASI - | | 07/07/ | 4376-3 | | - [id number]: Qty: 1 | | Hip | ZIMM | | 2020 | 8-055 | | on 03/06/2015 by Srinivas Martinez | | | | | | / | | C, MD | | | | | | /[id number] | | | | | | | | 062 | + +--------+--------+ +--------+--------+--------+ + +-------+--------+ +--------+--------+--------+ | Explanted | Type | Area | Manufacture | Device | Shelf | Model | | | | | r | | Expira | / | | | | | | Identi | tion | Serial | | | | | | fier | Date | / Lot | + +-------+--------+ +--------+--------+--------+ | Stent Pancr Advnx Pgtl Lb 5f | Stent | | [place] | | | 3715 / | | 7 - [id number]: Qty: | | | SCIENTIFIC | | | / | | 1 on 10/31/2016 by Idania, | | | [employer]CR[employer] - [employer] | | | | | MD ShayExplanted: Qty: 1 | | | | | | | | on 12/10/2016 by Idania, | | | | | | | | MD Shay | | | | | | | + +-------+--------+ +--------+--------+--------+ | Stent Pancr Advnx Pgtl Lb 7f | Stent | | [place] | | 03/25/ | 3726 / | | 7 - [id number]: Qty: | | | SCIENTIFIC | | 2017 | | | 1 on 12/10/2016 by Idania, | | | [employer] | | | / | | MD ShayExplanted: Qty: 1 | | | | | | 948 | | on 02/18/2017 by Idania, | | | | | | | | MD Shay | | | | | | | + +-------+--------+ +--------+--------+--------+ | Stent Pancr Advnx Pgtl Lb 7f | Stent | N/A: | [place] | | 05/17/ | 3726 / | | 7 - [id number]: Qty: | | Pancre | SCIENTIFIC | | 2016 | | | 1 on 02/18/2017 by Idania, | | as | [employer] - [employer] | | | /[id number] | | MD ShayExplanted: Qty: 1 | | | | | | 493 | | on 06/26/2017 | | | | | | | + +-------+--------+ +--------+--------+--------+ | Stent Pancr Advnx Pgtl Lb 7f | Stent | N/A: | [place] | | 01/19/ | [id number] | | 7 - [id number]: Qty: | | Pancre | SCIENTIFIC | | 2019 | 260 / | | 1 on 10/23/2017Explanted: | | as | MACRINA - BSCI | | | /[id number] | | Qty: 1 on 03/12/2018 | | | | | | 889 | + +-------+--------+ +--------+--------+--------+ Procedures + +--------+ + + + | Procedure Name | Priori | Date/Time | Associated Diagnosis | Comments | | | ty | | | | + +--------+ + + + | XR CHEST PA AND | STAT | 02/15/2019 | | Results for this | | LATERAL | | 13:14 PDT | | procedure are in the | | | | | | results section. | + +--------+ + + + | EXTRA HOLD TUBE(S) | Routin | 02/15/2019 | | Results for this | | | e | 12:01 PDT | | procedure are in the | | | | | | results section. | + +--------+ + + + | TROPONIN I | STAT | 02/15/2019 | | Results for this | | | | 12:01 PDT | | procedure are in the | | | | | | results section. | + +--------+ + + + | COMPREHENSIVE | STAT | 02/15/2019 | | Results for this | | METABOLIC PANEL | | 12:01 PDT | | procedure are in the | | | | | | results section. | + +--------+ + + + | CBC WITH | STAT | 02/15/2019 | | Results for this | | DIFFERENTIAL | | 12:01 PDT | | procedure are in the | | | | | | results section. | + +--------+ + + + | ECG 12 LEAD | STAT | 02/15/2019 | | | | | | 11:39 PDT | | | + +--------+ + + [...] | | RAD | +---+--------+ + +--------+ + + + | POC GLUCOSE | Routin | 02/15/2019 | | Results for this | | | e | 7:26 PDT | | procedure are in the | | | | | | results section. | + +--------+ + + + | ERCP | Routin | 02/15/2019 [...] | | + +--------+ + + + from Last 3 Months Results XR Chest PA and Lateral (02/15/2019 13:14 PDT) + + | Specimen | + + | | + + + + + | Narrative | Performed At | + + + | CHEST TWO VIEWS CLINICAL INFORMATION: Syncope. Bradycardia. | [facility] | | COMPARISON: XR CHEST AP PORTABLE (10/31/2017); CT CHEST WO | | | CONTRAST (06/23/2016); XR CHEST 2 VIEWS (06/14/2015); FINDINGS: | | | Heart, lungs and vessels normal. No pneumothorax, pleural effusion or | | | adenopathy. No significant bone abnormality. Mild prominent right | | | pericardial fat unchanged. IMPRESSION: No evidence of pneumonia | | | or congestive failure. Signed by: Connor Mensah Peter | | | Sign Date/Time: 02/15/2019 1:31 PM | | + + + + + | Procedure Note | + + | Gary, Rad Results In - 02/15/2019 1336 PDT | | CHEST TWO VIEWS | | | | CLINICAL INFORMATION: | | Syncope. Bradycardia. | | | | COMPARISON: | | XR CHEST AP PORTABLE (10/31/2017); CT CHEST WO CONTRAST (06/23/2016); XR | | CHEST 2 VIEWS (06/14/2015); | | | | FINDINGS: | | Heart, lungs and vessels normal. No pneumothorax, pleural effusion or | | adenopathy. No significant bone abnormality. Mild prominent right | | pericardial fat unchanged. | | | | IMPRESSION: | | No evidence of pneumonia or congestive failure. | | | | | | | | Signed by: Connor Mensah Peter | | Sign Date/Time: 02/15/2019 1:31 PM | + + + +---------+ + + | Performing | Address | City/State/Zipcode | Phone Number | | Organization | | | | + +---------+ + + | [facility] | | | | + +---------+ + + Extra Hold Tube(s) (02/15/2019 12:01 PDT) + + + + + + | Component | Value | Ref Range | Performed | Pathologist | | | | | At | Signature | + + + + + + | Extra Tube | DrawnComment: Performed | | [facility] | | | | by [facility] [address], | | [place]CR[place] | | | | [place] [address] | | HEART | | | |Performed by [facility] [address], [place] [address] | | MEDICAL | | | | | | CENTER | | | | | | LABORATORY | | | | | | [facility] | | + + + + + + + + | Specimen | + + | Blood | + + + + + | Narrative | Performed At | + + + | [facility] | | [facility] | | | LABORATORY | | | [facility] | + + + + + + + + | Performing | Address | City/State/Zipcode | Phone Number | | Organization | | | | + + + + + | [facility] | [address] | [place] [address] | | | [facility] | | | | | LABORATORY [facility] | | | | + + + + + Troponin I (02/15/2019 12:01 PDT) + + + + + + | Component | Value | Ref Range | Performed | Pathologist | | | | | At | Signature | + + + + + + | Troponin I | 0.012Comment: | 0.000 - 0.069 | [facility] | | | | Ultra-Sensitive | ng/mL | [facility] | | | | TroponinPerformed by [facility] | | HEART | | | | [address], | | MEDICAL | | | | [place] [address] | | CENTER | | | | | | LABORATORY | | | | | | [place] | | + + + + + + + + | Specimen | + + | Blood | + + + + + + + | Performing | Address | City/State/Zipcode | Phone Number | | Organization | | | | + + + + + | [facility] | [address] | [place] [address] | | | [facility] | | | | | LABORATORY [facility] | | | | + + + + + CBC with Differential (02/15/2019 12:01 PDT) + + + +------- ------+ + | Component | Value | Ref Range | Perfor med | Pathologist | | | | | At | Signature | + + + +------- ------+ + | WBC | 6.52 | 3.80 - 11.00 | [facility] | | | | | K/uL | [facility] | | | | | | HEART | | | | | | MEDICA [facility] | | | | | | CENTER | | | | | | LABORA TORY | | | | | | [facility] | | + + + +------- ------+ + | RBC | 4.96 | 4.20 - 5.70 | [facility] | | | | | M/uL | [facility] | | | | | | HEART | | | | | | [facility] | | | | | | CENTER | | | | | | LABORA TORY | | | | | | [facility] | | + + + +------- ------+ + | Hemoglobin | 14.9 | 13.2 - 17.0 | [facility] | | | | | g/dL | [facility] | | | | | | HEART | | | | | | MEDICA [facility] | | | | | | CENTER | | | | | | LABORA TORY | | | | | | [facility] | | + + + +------- ------+ + | Hct | 45.4 | 39.0 - 50.0 % | [facility] | | | | | | [facility] | | | | | | [facility] | | | | | | [facility] | | | | | | CENTER | | | | | | LABORA TORY | | | | | | [facility] | | + + + +------- ------+ + | MCV | 91.5 | 80.0 - 100.0 fL | [facility] | | | | | [facility] | | | | | | [facility] | | | | | | [facility] | | | | | | CENTER | | | | | | LABORA TORY | | | | | | [facility] | | + + + +------- ------+ + | MCH | 30.0 | 27.0 - 34.0 pg | [facility] | | | | | | [facility] | | | | | | [facility] | | | | | | [facility] | | | | | | CENTER | | | | | | LABORA TORY | | | | | | CERNER | | + + + +------- ------+ + | MCHC | 32.8 | 32.0 - 35.5 | [facility] | | | | | g/dL | SACR[facility] | | | | | | HEART | | | | | | MEDICA L | | | | | | CENTER | | | | | | LABORA TORY | | | | | | CERNER | | + + + +------- ------+ + | RDW-CV | 13.3 | 11.0 - 15.5 % | [facility] | | | | | | [facility]CR[facility] | | | | | | HEART | | | | | | MEDICA L | | | | | | CENTER | | | | | | LABORA TORY | | | | | | CERNER | | + + + +------- ------+ + | Platelet | 270 | 150 - 400 K/uL | [facility] | | | Count | | | [facility]CR[facility] | | | | | | HEART | | | | | | MEDICA L | | | | | | CENTER | | | | | | LABORA TORY | | | | | | CERNER | | + + + +------- ------+ + | MPV | 9.3 | 9.3 - 12.7 fL | [facility] | | | | | | [facility]CR[facility] | | | | | | HEART | | | | | | MEDICA L | | | | | | CENTER | | | | | | LABORA TORY | | | | | | CERNER | | + + + +------- ------+ + | % | 59.0 | 40.0 - 75.0 % | [facility] | | | Neutrophils | | | SACRED | | | | | | HEART | | | | | | MEDICA L | | | | | | CENTER | | | | | | LABORA TORY | | | | | | CERNER | | + + + +------- ------+ + | % | 31.0 | 15.0 - 48.0 % | [facility] | | | Lymphocytes | | | SACR[facility] | | | | | | HEART | | | | | | MEDICA L | | | | | | CENTER | | | | | | LABORA TORY | | | | | | CERNER | | + + + +------- ------+ + | % Monocytes | 8.3 | 0.0 - 12.0 % | [facility] | | | | | | SACR[facility] | | | | | | HEART | | | | | | MEDICA L | | | | | | CENTER | | | | | | LABORA TORY | | | | | | CERNER | | + + + +------- ------+ + | % | 0.6 | 0.0 - 7.0 % | [facility] | | | Eosinophils | | | SACRED | | | | | | HEART | | | | | | MEDICA L | | | | | | CENTER | | | | | | LABORA TORY | | | | | | CERNER | | + + + +------- ------+ + | % Basophils | 0.6 | 0.0 - 2.0 % | [facility] | | | | | | [facility]CR[facility] | | | | | | HEART | | | | | | MEDICA L | | | | | | CENTER | | | | | | LABORA TORY | | | | | | CERNER | | + + + +------- ------+ + | % Immature | 0.5Comment: Immature | 0.0 - 1.0 % | [facility] | | | Granulocyte | granulocytes are | | SACRED | | | s | left-shifted | | HEART | | | | granulocytes and do not | | MEDICA L | | | | equal blasts. They | | CENTER | | | | are composed of | | LABORA TORY | | | | metamyelocytes, | | CERNER | | | | myelocytes, and | | | | | | promyelocytes. Their | | | | | | presence can be seen in | | | | | | infection, inflammation, | | | | | | certain medication's | | | | | | effect, or other bone | | | | | | marrow | | | | | | stimuli. Occasionally | | | | | | , persistent increase in | | | | | | immature granulocytes | | | | | | may be part of myeloid | | | | | | neoplastic | | | | | | process. Correlation | | | | | | with clinical findings | | | | | | is recommended for | | | | | | complete interpretation | | | | | | of this | | | | | | parameter. Please | | | | | | also note that | | | | | | peripheral blood with | | | | | | immature granulocytes | | | | | | >5% will be manually | | | | | | reviewed by lab | | | | | | personnel and/or | | | | | | pathologists. | | | | + + + +------- ------+ + | Absolute | 3.85 | 1.90 - 7.40 | [facility] | | | Neutrophils | | K/uL | SACR[facility] | | | | | | HEART | | | | | | MEDICA L | | | | | | CENTER | | | | | | LABORA TORY | | | | | | CERNER | | + + + +------- ------+ + | Absolute | 2.02 | 1.00 - 3.90 | [facility] | | | Lymphocytes | | K/uL | [facility]CR[facility] | | | | | | HEART | | | | | | MEDICA L | | | | | | CENTER | | | | | | LABORA TORY | | | | | | CERNER | | + + + +------- ------+ + | Absolute | 0.54 | 0.00 - 0.80 | [facility] | | | Monocytes | | K/uL | [facility]CR[facility] | | | | | | HEART | | | | | | MEDICA L | | | | | | CENTER | | | | | | LABORA TORY | | | | | | CERNER | | + + + +------- ------+ + | Absolute | 0.04 | 0.00 - 0.50 | [facility] | | | Eosinophils | | K/uL | SACR[facility] | | | | | | HEART | | | | | | MEDICA L | | | | | | CENTER | | | | | | LABORA TORY | | | | | | CERNER | | + + + +------- ------+ + | Absolute | 0.04 | 0.00 - 0.10 | [facility] | | | Basophils | | K/uL | SACR[facility] | | | | | | HEART | | | | | | MEDICA L | | | | | | CENTER | | | | | | LABORA TORY | | | | | | CERNER | | + + + +------- ------+ + | Absolute | 0.03Comment: Performed | 0.00 - 0.03 | [facility] | | | Immature | by [facility] [address], | K/uL | SACRED | | | Granulocyte | [place], [place] | | HEART | | | s |Performed by [facility] [address], [place], [place] | | MEDICA L | | | | | | CENTER | | | | | | LABORA TORY | | | | | | CERNER | | + + + +------- ------+ + + + | Specimen | + + | Blood | + + + + + + + | Performing | Address | City/State/Zipcode | Phone Number | | Organization | | | | + + + + + | [facility] | [address] | [place], [place] | | | [facility] | | | | | LABORATORY CERNER | | | | + + + + + Comprehensive Metabolic Panel (02/15/2019 12:01 PDT) + + + + + + | Component | Value | Ref Range | Performed | Pathologist | | | | | At | Signature | + + + + + + | Na | 141 | 135 - 145 | [facility] | | | | | mmol/L | SACRED | | | | | | HEART | | | | | | MEDICAL | | | | | | CENTER | | | | | | LABORATORY | | | | | | CERNER | | + + + + + + | K | 3.8 | 3.5 - 5.0 | [facility] | | | | | mmol/L | SACRED | | | | | | HEART | | | | | | MEDICAL | | | | | | CENTER | | | | | | LABORATORY | | | | | | CERNER | | + + + + + + | Cl | 106 | 99 - 109 mmol/L | [facility] | | | | | | SACRED | | | | | | HEART | | | | | | MEDICAL | | | | | | CENTER | | | | | | LABORATORY | | | | | | CERNER | | + + + + + + | CO2 | 27 | 21 - 28 mmol/L | [facility] | | | | | | SACRED | | | | | | HEART | | | | | | MEDICAL | | | | | | CENTER | | | | | | LABORATORY | | | | | | CERNER | | + + + + + + | Calcium | 9.6 | 8.5 - 10.2 | [facility] | | | | | mg/dL | SACRED | | | | | | HEART | | | | | | MEDICAL | | | | | | CENTER | | | | | | LABORATORY | | | | | | CERNER | | + + + + + + | Anion Gap | 8 | 5 - 16 mmol/L | [facility] | | | | | | SACRED | | | | | | HEART | | | | | | MEDICAL | | | | | | CENTER | | | | | | LABORATORY | | | | | | CERNER | | + + + + + + | Albumin | 4.5 | 3.5 - 5.0 g/dL | [facility] | | | | | | SACRED | | | | | | HEART | | | | | | MEDICAL | | | | | | CENTER | | | | | | LABORATORY | | | | | | CERNER | | + + + + + + | BUN | 9 | 8 - 25 mg/dL | [facility] | | | | | | SACRED | | | | | | HEART | | | | | | MEDICAL | | | | | | CENTER | | | | | | LABORATORY | | | | | | CERNER | | + + + + + + | Creatinine | 1.12 | 0.70 - 1.30 | [facility] | | | | | mg/dL | SACRED | | | | | | HEART | | | | | | MEDICAL | | | | | | CENTER | | | | | | LABORATORY | | | | | | CERNER | | + + + + + + | Glucose | 103 (H) | 65 - 99 mg/dL | [facility] | | | | | | SACRED | | | | | | HEART | | | | | | MEDICAL | | | | | | CENTER | | | | | | LABORATORY | | | | | | CERNER | | + + + + + + | Total | 6.7 | 6.1 - 8.4 g/dL | [facility] | | | Protein | | | SACRED | | | | | | HEART | | | | | | MEDICAL | | | | | | CENTER | | | | | | LABORATORY | | | | | | CERNER | | + + + + + + | Alkaline | 106 | 35 - 115 U/L | [facility] | | | Phosphatase | | | SACRED | | | | | | HEART | | | | | | MEDICAL | | | | | | CENTER | | | | | | LABORATORY | | | | | | CERNER | | + + + + + + | ALT | <7 (L) | 10 - 65 U/L | [facility] | | | | | | SACRED | | | | | | HEART | | | | | | MEDICAL | | | | | | CENTER | | | | | | LABORATORY | | | | | | CERNER | | + + + + + + | AST | 13 | 10 - 45 U/L | [facility] | | | | | | SACRED | | | | | | HEART | | | | | | MEDICAL | | | | | | CENTER | | | | | | LABORATORY | | | | | | CERNER | | + + + + + + | Bilirubin | 0.6 | 0.1 - 1.5 mg/dL | [facility] | | | Total | | | SACRED | | | | | | HEART | | | | | | MEDICAL | | | | | | CENTER | | | | | | LABORATORY | | | | | | CERNER | | + + + + + + | Estimated | 73 (L)Comment: eGFR<60 | >=90 | [facility] | | | GFR | consistent with impaired | mL/min/1.73m2 | SACRED | | | | kidney function.For | | HEART | | | | Americans, | | MEDICAL | | | | multiply the calculated | | CENTER | | | | GFR by 1.210Performed by | | LABORATORY | | | | [facility] [address] [place], | | [place] | | | | [place] [address] | | | | + + + + + + + + | Specimen | + + | Blood | + + + + + + + | Performing | Address | City/State/Zipcode | Phone Number | | Organization | | | | + + + + + | [facility] | [address] | [place] [address] | | | [facility] | | | | | LABORATORY [place] | | | | + + + + + [place] ERCP Pancreas Only (02/15/2019 8:32 PDT) [...] Procedure Note | + + | Gary, Roderick Results In - 02/15/2019 1625 PDT | [...] | [facility] | | | POC | [facility] [address], | | SACRED | | | | [place] [address] | | HEART | | | |Performed by [facility] [address], [place] [address] | | MEDICAL | | | | | | CENTER | | | | | | LABORATORY | | | | | | [place] | | + + + + --+ + + + | Specimen | + + | Blood | + + + + + + + | Performing | Address | City/State/Zipcode | Phone Number | | Organization | | | | + + + + + | [facility] | [address] | [place] [address] | | | [facility] | | | | | [place] | | | | + + + + + ERCP (02/15/2019 7:14 PDT) + + | Specimen | + + | | + + + + + | Narrative | Performed At | + + + | [place] | [place] | | [facility] | [place]ATION | | CenterGI | | | Patient Name: Arcenio Gomez Norm Procedure | | | Date: 02/15/2019 7:14 AMMRN: | | | [id number] Account Number: | | | [id number] of : 1960 Note | | | [...] | stent | | | exchange.Referring: BJ GARCIA, | | | MDMedicines: Monitored Anesthesia | [...] | | | | | Findings: A diesel trailer mechanic film of the abdomen | | | [...] show any filling defects. Then, a 7 Nepali by 7 | | | cm single [...] Addenda: 0 [place] [facility] | | | [facility] | | + + + + +---------+ + + | Performing | Address | City/State/Zipcode | Phone Number | | Organization | | | | + +---------+ + + | [place] | | | | + +---------+ + + from Last 3 Months Insurance + +--------+ +--------+ +---------+--------+ | Payer | Benefi | Subscriber | Effect | Phone | Address | Type | | | t Plan | ID | rory | | | | | | / | | Dates | | | | | | Group | | | | | | + +--------+ +--------+ +---------+--------+ | MEDICARE | MEDICA | [id number] | | [phone] | | Medica | | | RE | | 011-Pr | 5 | | re | | | PART A | | esent | | | | | | AND B | | | | | | + +--------+ +--------+ +---------+--------+ | CAREASSIST | CAREAS | [id number] | | [phone] | | Indemn | | | SIST | | 013-Pr | 4 | | ity | | | | | esent | | | | + +--------+ +--------+ +---------+--------+ + +--------+ +--------+ + + | Guarantor Name | Accoun | Relation to | Date | Phone | Billing Address | | | t Type | Patient | of | | | | | | | | | | + +--------+ +--------+ + + | Arcenio Gomez | Person | Self [birth year] | [address] | | | al/Fam | | 1960 | [phone] | [address] [place], | | | jovany | | | 6 ([place]) | [place] [address] | + +--------+ +--------+ + + Advance Directives Patient has advance care planning documents, and code status on file. For more information, please contact:[facility] [place] [address] + + + + + | Code Status | Date | Date | Comments | | | Activated | Inactivated | | + + + + + | Full Code | 12/30/2018 | 12/30/2018 | | | | 10:38 | 13:21 | | + + + + + + + + +---+ | | | | | + + + +---+ | Full Code | 12/02/2018 | 12/02/2018 | | | | 13:30 | 15:51 | | + + + +---+ + + + +---+ | | | | | + + + +---+ | Full Code | 03/06/2015 | 03/10/2015 | | | | 15:09 | 16:34 | | + + + +---+ + + + +---+ | | | | | + + + +---+ | Full Code | 09/15/2014 | 09/16/2014 | | | | 16:17 | 17:49 | | + + + +---+"
--- OUTSIDE RECORDS SUMMARY | ~2019-02-23 | XMS | Encounter Summary ---
Demographics + + + | Address | [address] | | | [place] [address] | + + + | Home Phone | | + + + | Preferred Language | Unknown | + + + | Marital Status | Single | + + + | Mosque Affiliation | 1041 | + + + | Race | Unknown | + + + | Ethnic Group | Unknown | + + + Author + + + | Author | [facility] | | | and [place] | + + + | Organization | [facility] | | | [...] Team Providers + +------+ + | Care Thaw Shed Heater Tender Name | Role | Phone | + [...] | | | | | unspecified | [place], | [place], [place] | | | | | pancreatitis | [place] [address] | [address] Phone: | | | | | type (HCC) | Phone: | [phone] | | | | | Procedures | [phone] | Fax: | | | | | Fax: | [phone] | | | | | ERCP- 4 | [phone] | | | | | | month - [place] | | | + + + + + + + Encounter Details +--------+ + + + + | Date | Type | Department | Care Team | Description | +--------+ + + + + | 02/15/ | Hospital | [facility] | Shay Emerson MD | Chronic | | 2019 | Encounter | [facility] | [address] [place] | pancreatitis, | | | | INTRA OP [address] | [address] [place] | unspecified | | | | Ave [place] | [address] | pancreatitis type | | | | [address] | | (HCC); Other chronic | | | | [phone] | | pancreatitis (HCC) | +--------+ + [...] | 5 | 10/04/19 | | | hsredbk-ljxvjj-mabox | mouth 3 times daily | capsule [...] | [facility] | | | POC | [facility] [address], | | SACRED | | | | [place] [address] | | HEART | | | |Performed by [facility] [address], [place] [address] | | MEDICAL | | | | [...] + + | [facility] | [address] | [place] [address] | | | [facility] | | | | | [place] | | | | + + + + + ERCP (02/15/2019 7:14 PDT) + + | Specimen | + + | | + + + + + | Narrative | Performed At | + + + | [place] | [place] | | [facility] | [place] | | CenterGI | | | Patient Name: Arcenio Gomez Procedure | | | Date: 02/15/2019 7:14 AMMRN: | | | [id number] Account Number: | | | [id number] of : 1960 Note | | | [...] | | | | | Findings: A supervisor engines road film of the abdomen | | | [...] show any filling defects. Then, a 7 Yakut by 7 | | | cm single [...] Addenda: 0 [place] [facility] | | | [facility] | | + + [...]
--- OUTSIDE RECORDS SUMMARY | ~2019-02-23 | XMS | Encounter Summary ---
Demographics + + + | Address | [address] | | | [place] [address] | + + + | Home Phone | | + + + | Preferred Language | Unknown | + + + | Marital Status | Single | + + + | Methodist Affiliation | 1041 | + + + | Race | Unknown | + + + | Ethnic Group | Unknown | + + + Author + + + | Author | [facility] | | | and [place] | + + + | Organization | [facility] | | | [...] Team Providers + +------+ + | Care Fundraising Director Name | Role | Phone | + +------+ + | Robert Garcia MD | PCP | Unavailable | + +------+ + Encounter Details +--------+ + + + + | Date | Type | Department | Care Team | Description | +--------+ + + + + | 12/01/ | Orders Only | [facility] | Apollo Bran, | | | 2019 | | [facility] | [address] | | | | | SURGICAL [address] | [place], [place] | | | | | [place], | [address] | | | | | [place] [address] | | | | | | [phone] | | | +--------+ + + + [...]
--- OUTSIDE RECORDS SUMMARY | ~2019-02-23 | XMS | Encounter Summary ---
Demographics + + + | Address | [address] | | | [place] [address] | + + + | Home Phone | | + + + | Preferred Language | Unknown | + + + | Marital Status | Single | + + + | Jew Affiliation | 1041 | + + + | Race | Unknown | + + + | Ethnic Group | Unknown | + + + Author + + + | Author | [facility] | | | and [place] | + + + | Organization | [facility] | | | [...] Team Providers + +------+ + | Care Yolk Spray Drier Name | Role | Phone | + +------+ + | Robert Garcia MD | PCP | Unavailable | + +------+ + Reason for Visit + + + | Reason | Comments | + + + | Near Syncope | | + + + | Bradycardia | | + + + Encounter Details +--------+ + + + + | Date | Type | Department | Care Team | Description | +--------+ + + + + | 02/15/ | Emergency | [facility] | Toro Whitaker MD | Bradycardia, | | 2019 | | HEART MED CTR | [address] | unspecified (Primary | | | | EMERGENCY CENTER | [place], [place] | Dx) | | | | [address] | [address] | | | | | [place], [place] | [phone] | | | | | [address] | | | | | | [phone] | | | +--------+ + + + [...] 02/15/20191138 PDT | + + + + documented [...] as of this encounter Discharge Instructions Instructions Toro Whitaker MD - 02/15/2019Your workup here today shows no acute findings oth er than some PVCs and no significant ongoing bradycardia. We recommend observation at home and if you have further issues feeling lightheaded or other signs of bradycardia follow-up w ith your primary care provider. Return here as needed for any emergent concerns. Continue current medications as before. documented in this encounter Medications at Time [...] | 5 | 10/04/19 | | | rcxifbw-qmhmuf-ovvzo | mouth 3 times daily | capsule [...] + + + +---------+ + + | ONETOKADEN MONICA | | | 3 | 03/26/20 | [...] as of this encounter Plan of Treatment + +--------+ + + | Name | Priori | Associated Diagnoses | Date/Time | | | ty | | | + +--------+ + + | ECG 12 lead | STAT | | 02/15/2019 11:39 PDT | + +--------+ + + documented as of this encounter [...] section. | + +--------+ + + + documented in this encounter Results XR Chest PA and Lateral (02/15/2019 [...] | Roderick Vega Results In - 02/15/2019 1336 PDT | [...] + + | Performing | Address | City/State/[facility] | Phone Number | | Organization | [...] | [facility] | | | | by [facility] [address], | | SACRED | | | | [place] [address] | | HEART | | | |Performed by [facility] [address], [place] [address] | | MEDICAL | | | | [...] + + + + + | [facility] | [address] | [place] [address] | | | [facility] | | | | | LABORATORY [place] [...] SACRED | | | | TroponinPerformed by [facility] | | HEART | | | | [address], | | MEDICAL | | | | [place] [address] | | CENTER | | | | [...] + + | [facility] | [address] | [place] [address] | | | [facility] | | | | | LABORATORY CERN[place] [...] | 73 (L)Comment: eGFR<60 | >=90 | [facility] | | | GFR | consistent with impaired | mL/min/1.73m2 | SACRED | | | | kidney function.For | | HEART | | | | Americans, | | MEDICAL | | | | multiply the calculated | | CENTER | | | | GFR by 1.210Performed by | | LABORATORY | | | | [facility] [address], | | [place]ERNER | | | | [place] [address] | | | | + + + + + + + + | Specimen | + + | Blood | + + + + + + + | Performing | Address | City/State/Zipcode | Phone Number | | Organization | | | | + + + + + | [facility] | [address] | [place] [address] | | | [facility] | | | | | LABORATORY [place] [...] | | | | | K/uL | L[facility] | | | | | | HEART | | | | | | MEDICA L | | | | | | CENTER | | | | | | [place]ANN [place] | | | | | | [place] | | + + + +------- ------+ [...] ENCE | | | Immature | by [facility] [address], | K/uL | SACRED | | | Granulocyte | [place] [address] | | HEART | | | s |Performed by [facility] [address], [place] [address] | | MEDICA L | | | [...] + + + + + | [facility] | [address] | [place] [address] | | | [facility] | | | | | [place] | | | | + + + + + documented in this encounter Visit Diagnoses + + | Diagnosis | + + | Bradycardia, unspecified - Primary | + + documented in this encounter"
--- OUTSIDE RECORDS SUMMARY | ~2019-02-23 | XMS | Encounter Summary ---
Demographics + + + | Address | [address] | | | [place] [address] | + + + | Home Phone | | + + + | Preferred Language | Unknown | + + + | Marital Status | Single | + + + | Latter Day Affiliation | 1041 | + + + | Race | Unknown | + + + | Ethnic Group | Unknown | + + + Author + + + | Author | [facility] | | | and [place] | + + + | Organization | [facility] | | | [...] Team Providers + +------+ + | Care Parent Aide Name | Role | Phone | + +------+ + | Robert Garcia MD | PCP | Unavailable | + +------+ + Encounter Details +--------+ + + + + | Date | Type | Department | Care Team | Description | +--------+ + + + + | 12/30/ | Hospital | [facility] | Apollo Bran, | Nuclear sclerotic | | 2019 | 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 | [place] [address] | P: [phone] | F: [phone] | Ready documented in this encounter Medications at Time [...] | 5 | 10/04/19 | | | onzczew-vugbmu-gysdd | mouth 3 times daily | capsule [...] | First dose on [facility] 12/30/18 at | | | | | [...] | | | | | | Starting [facility] 12/30/18 at 0854, For | | | [...] glucose < 50, | | | Starting [facility] 12/30/18 at 0854, | | | Repeat [...] | First dose on [facility] 12/30/18 at | | | | | [...] | | | | | | Starting [facility] 12/30/18 at 0854, For | | | [...] | | | | | | Starting [facility] 12/30/18 at 0854, For | | | [...] | | | | | | Starting [facility] 12/30/18 at 0854, For | | | [...]
--- OUTSIDE RECORDS SUMMARY | ~2019-02-23 | XMS | Encounter Summary ---
Demographics + + + | Address | [address] | | | [place] [address] | + + + | Home Phone | | + + + | Preferred Language | Unknown | + + + | Marital Status | Single | + + + | Mormon Affiliation | 1041 | + + + | Race | Unknown | + + + | Ethnic Group | Unknown | + + + Author + + + | Author | [facility] | | | and [place] | + + + | Organization | [facility] | | | [...] Team Providers + +------+ + | Care Truck Unloader Name | Role | Phone | + [...] [place] | | | | | | [address] | | | | | | [phone] | | | +--------+---------+ + + + [...] | 5 | 10/04/19 | | | myeabum-scewrd-dyxkk | mouth 3 times daily | capsule [...] Notes Yaakov Davis, GENO - 02/15/2019 0929 DXADr Magdalene in to talk with pt and [...] | [facility] | | | POC | [facility] [address], | | SACRED | | | | [place] [address] | | HEART | | | |Performed by [facility] [address], [place] [address] | | MEDICAL | | | | [...] + + | DALLAS JACKMAN | [address] | [place] [address] | | | [facility] | | | | | DANA TARANGO [...] Date: 02/15/2019 7:14 AMMRN: | | | [id number] Account Number: | | | [id number] of : 1960 Note | | | [...] | | | | | Findings: A medical record librarians teacher film of the abdomen | | | [...] Addenda: 0 Dallas Jackmaned | | | [facility] | | + [...]
--- OUTSIDE RECORDS SUMMARY | ~2019-02-23 | XMS | Encounter Summary ---
Demographics + + + | Address | [address] | | | [place] [address] | + + + | Home Phone | | + + + | Preferred Language | Unknown | + + + | Marital Status | Single | + + + | Sikh Affiliation | 1041 | + + + [...] Team Providers + +------+ + | Care Box Finisher Name | Role | Phone | + [...] | [facility] | [address] | unspecified (Primary | | | | EMERGENCY CENTER | [place], [place] | Dx) | | | | [address] | [address] | | | | | [place], [place] | [phone] | | | | | [address] | | | | | | [phone] | | | +--------+ + + + [...] | 5 | 10/04/19 | | | fspxpfq-kvjpwz-ydpij | mouth 3 times daily | capsule [...] + + | Performing | Address | City/State[facility] | Phone Number | | Organization | [...] | [facility] | | | | by [facility] [address], | | SACRED | | | | [place] [address] | | HEART | | | |Performed by [facility] [address], [place] [address] | | MEDICAL | | | | [...] + + | [facility] | [address] | [place] [address] | | | [facility] | | | | | LABORATORY [place] [...] SACRED | | | | TroponinPerformed by [facility] | | HEART | | | | [address], | | MEDICAL | | | | [place] [address] | | CENTER | | | | [...] + + | [facility] | [address] | [place] [address] | | | [facility] | | | | | LABORATORY CERNER [...] | | LABORATORY | | | | [facility] [address], | | CERNER | | | | [place] [address] | | | | + + + + + + + + | Specimen | + + | Blood | + + + + + + + | Performing | Address | City/State/Zipcode | Phone Number | | Organization | | | | + + + + + | [facility] | [address] | [place] [address] | | | [facility] | | | | | LABORATORY [place] [...] ENCE | | | Immature | by [facility] [address], | K/uL | SACRED | | | Granulocyte | [place] [address] | | HEART | | | s |Performed by [facility] [address], [place] [address] | | MEDICA L | | | [...] + + | [facility] | [address] | [place] [address] | | | [facility] | | | | | [place] | | | | + + + + + documented in this encounter Visit Diagnoses + + | Diagnosis | + + | Bradycardia, unspecified - Primary | + + documented in this encounter"
--- OUTSIDE RECORDS SUMMARY | ~2019-02-23 | XMS | Encounter Summary ---
Demographics + + + | Address | [address] | | | [place] [address] | + + + | Home Phone | | + + + | Preferred Language | Unknown | + + + | Marital Status | Single | + + + | Holiness Affiliation | 1041 | + + + | Race | Unknown | + + + | Ethnic Group | Unknown | + + + Author + + + | Author | [facility] | | | and Yuval[place] | + + + | Organization | [facility] | | [...] Team Providers + +------+ + | Care Patient Access Specialist Name | Role | Phone | + [...] | IN[facility] OP [address] | [place] [address] | | | | | [place] | [phone] | | | | | [address] | | | | | | [phone] | | | +--------+ + + + [...] | 02/15/19931 by | | eral | rccf-pdr-lpdbyx catheter system; | Layne Chowdary RN | [...]
--- OUTSIDE RECORDS SUMMARY | ~2019-02-23 | XMS | Encounter Summary ---
Demographics + + + | Address | [address] | | | [place] [address] | + + + | Home Phone | | + + + | Preferred Language | Unknown | + + + | Marital Status | Single | + + + | Orthodox Affiliation | 1041 | + + + | Race | Unknown | + + + | Ethnic Group | Unknown | + + + Author + + + | Author | [facility] | | | and Yuvalana | + + + | Organization | [facility] | | [...] Team Providers + +------+ + | Care Electronic Scanner Operator Name | Role | Phone | + +------+ + | Robert Garcia MD | PCP | Unavailable | + +------+ + Encounter Details +--------+ + + + + | Date | Type | Department | Care Team | Description | +--------+ + + + + | 12/30/ | Anesthesia | [facility] | Toro Cabrera MD | | | 2019 | Event | [facility] OR [facility] | [address] | | | | | [address] | [place] | | | | | [place] | [address] | | | | | [address] | | | | | | [phone] | | | +--------+ + + + + Anesthesia Record + + + + + | Procedure Name | Responsible | Anesthesia Start | Anesthesia Stop Time | | | Anesthesiologist | Time | | + + + + + | RIGHT EXTRACTION | Toro Cabrera MD | 12/30/18 1000 | 12/30/18 1037 | | CATARACT WITH LENS | | | | | IMPLANT (Right Eye) | | | | + + + + + +----+---+ + + | Da | T | Event | Comment | | te | i | | | | | m | | | | | e | | | +----+---+ + + | 08 | 0 | | | | /1 | 9 | | | | 5/ | 1 | | | | 20 | 1 | | | | 19 | | | | +----+---+ + + | | 1 | Anesthesia | | | | 0 | Ready | | | | 0 | | | | | 0 | | | +----+---+ + + | | 1 | An Start | Reassessment prior to anesthesia induction/procedure. | | | 0 | | | | | 0 | | | | | 0 | | | +----+---+ + + | | 1 | AN | Per surgeon request | | | 0 | Antibiotic | | | | 0 | declined | | | | 0 | | | +----+---+ + + | | 1 | First | | | | 0 | Inc/Proc St | | | | 1 | | | | | 5 | | | +----+---+ + + | | 1 | Pre-Procedu | | | | 0 | ral Timeout | | | | 1 | Completed | | | | 5 | | | +----+---+ + + | | 1 | an stop | | | | 0 | data | | | | 3 | | | | | 1 | | | +----+---+ + + | | 1 | An Stop | Patient handed off to recovery nurse. | | | 3 | | | | | 7 | | | +----+---+ + + +------+ | Meds | +------+ + +--------+ | Name | Total | + +--------+ | propofol (DIPRIVAN) injection | 80 mg | | (bolus) (20 mL) | | + +--------+ | lidocaine 2% | 60 mg | + +--------+ | lactated ringers (LR) infusion | 300 mL | + +--------+ + + | Name | + + | N2O Flow Rate (L/Min) | + + | O2 Flow Rate (L/Min) | + + | Insp O2 | + + | Air Flow Rate (L/Min) | + + + + | No blood administrations on file. | + + +--------+ + + + | Type | Details | Placement | Removal | +--------+ + + + | Wound | 12/02/18; 1314; Incision; Left; | 12/02/18 1314 by | 12/30/18 1039 by | | | eye; 12/30/18; 1039 | Andi Felder RN | Shruthi Aguilar RN | +--------+ + + + | Periph | 12/30/18; 0923; Left; Forearm; | 12/30/18 09 by | 12/30/18 110 by | | xi | qcde-gkz-thuedx catheter system; | PEGGY STAUFFER | Shruthi Aguilar RN | | IV | 1 1/4 in length, 20 gauge; | | | | | intradermal injection, tolerated | | | | | well; no longer indicated; short | | | | | term use; 12/30/18; 1102 | | | +--------+ + + + | Wound | 12/30/18; 1018; Incision; Right; | 12/30/18 1018 by | 12/30/18 1115 by | | | eye; 12/30/18; 1115 | aSndy Cross RN | Aiyana Cruz RN | +--------+ + + + documented in [...] filedocumented in this encounter Administered Medications + + + +------+------+------+ | Medication Order | MAR | Action | Dose | Rate | Site | | | Action | Date | | | | + + + +------+------+------+ | lactated ringers (LR) infusion | Continue | 12/31/19 | | | | | at 10-100 mL/hr, Intravenous, | d by | 19 10:00 | | | | | CONTINUOUS, Starting Gina 12/30/18 | Anesthes | PDT | | | | | at 0915, TKO., Pre-op | ia | | | | | + + + +------+------+------+ +---------+ +---+-------+---+ | New Bag | 12/31/19 | | 100 | | | | 19 9:23 | | mL/hr | | | | PDT | | | | +---------+ +---+-------+---+ +---+---+ | | | +---+---+ + +-------+ +-------+---+---+ | lidocaine (PF) 2% injection | Given | 12/31/19 | 60 mg | | | | Intravenous, PRN, Starting Gina | | 19 10:02 | | | | | 12/30/18 at 1002, Anesthesia | | PDT | | | | | Intra-op | | | | | | + +-------+ +-------+---+---+ +---+---+ | | | +---+---+ + +-------+ +-------+---+---+ | propofol (DIPRIVAN) injection | Given | 12/31/19 | 80 mg | | | | Intravenous, PRN, Starting Gina | | 19 10:03 | | | | | 12/30/18 at 1003, Anesthesia | | PDT | | | | | Intra-op | | | | | | + +-------+ +-------+---+---+ +---+---+ | | | +---+---+ documented in this encounter"
--- OUTSIDE RECORDS SUMMARY | ~2019-02-23 | XMS | Clinical Summary ---
Demographics + + + | Address | [address] | | | [place] [address] | + + + | Home Phone | | + + + | Preferred Language | Unknown | + + + | Marital Status | Single | + + + | Hoahaoism Affiliation | 1041 | + + + | Race | Unknown | + + + | Ethnic Group | Unknown | + + + Author + + + | Author | [facility] | | | and Yuvalana | + + + | Organization | [facility] | | [...] Team Providers + +------+ + | Care Cement Crusher Operator Name | Role | Phone | [...] | 05/1 | | Activ | | gwltbdu-qetldl-shhaf | mouth 3 times daily | capsule [...] | | | | | | | ([facility]) | | | | | | | [...] automatically from request for surgery | | [id number] | + + + + + | [...] Left: | ANTONIO | | 09/25/ | [id number] | | 25.5 - [id number]: | c | Eye | MEDICAL | | 2021 | 0255 | | Qty: 1 on 12/02/2018 by | | | [facility] - | | | /[id number] | | Apollo Bran MD | | | [place] | | | [address] | | | | | | | | /N/A | + +--------+--------+ +--------+--------+--------+ | Lens Tecnis Preloaded Pcb | Generi | Right: | ANTONIO | | 09/15/ | [id number] | | 22.5 - [id number]: | c | Eye | MEDICAL | | 2021 | 0225 | | Qty: 1 on 12/30/2018 by | | | [facility] - | | | /[id number] | | Apollo Bran MD | | | [place] | | | [address] | | | | | | | | / | + +--------+--------+ +--------+--------+--------+ | Stent Pancr Advnx Pgtl Lb 7f | Stent | Pancre | [facility] | | | [id number] | | 7 - [id number]: Qty: | | as | SCIENTIFIC | | | 260 / | | 1 on 06/26/2017 | | | MACRINA - BSCI | | | /09278 | | | | | | | | 995 | + +--------+--------+ +--------+--------+--------+ | Stent Pancr Advnx Pgtl Lb 7f | Stent | N/A: | [facility] | | | [id number] | | 7 - [id number]: Qty: | | Pancre | SCIENTIFIC | | | 260 / | | 1 on 03/12/2018 | | as | MACRINA - BSCI | | | /04213 | | | | | | | | 765 | + +--------+--------+ +--------+--------+--------+ | Stent Pancr Advnx Pgtl Lb 7f | Stent | N/A: | [facility] | | 11/20/ | [id number] | | 7 - [id number]: Qty: | | Bile | SCIENTIFIC | | 2020 | 260 / | | 1 on 08/17/2018 by Idania, | | Duct | MACRINA - BSCI | | | /92058 | | MD Shay | | | | | | 040 | + +--------+--------+ +--------+--------+--------+ | Stent Pancr Advnx Pgtl Lb 7f | Stent | N/A: | [facility] | | | [id number] | | 7 - [id number]: Qty: | | Pancre | SCIENTIFIC | | | 260 / | | 1 on 02/15/2019 by Idania, | | as | MACRINA - BSCI | | | / | | MD Shay | | | | | | | + +--------+--------+ +--------+--------+--------+ | Elisa Castorena Pls 1cc Aseptic | | N/A: | OSTEOTECH - | | 04/27/ | [id number] | | - [id number]: Qty: | | Spine | OSTT | [...] N/A: | SPINALGRAFT | | 05/31/ | [id number] | | [id number] - [id number]: | | Spine | | | 2017 | | | Qty: 1 on 09/15/2014 by | | George | TECHNOLOGIE | | | /[id number] | | Quan Potts DO | | al | S - SPNL | | | 696 | | | | | | | | /77553 | | | | | | | | 3767 | + +--------+--------+ +--------+--------+--------+ | Allogft Lordtc Bone Sr | | N/A: | SPINALGRAFT | | 06/19/ | [id number] | | [id number] - [id number]: | | Spine | | | 2018 | | | Qty: 1 on 09/15/2014 by | | George | TECHNOLOGIE | | | /60694 | | Quan Potts DO | | al | S - SPNL | | | 603 | | | | | | | | /74583 | | | | | | | | 4544 | + +--------+--------+ +--------+--------+--------+ | Plate Kobe Hancock | | N/A: | [employer] - | | | [id number] | | 42.5mm - [id number]: | | Spine | MEDT | | | 2 / / | | Qty: 1 on 09/15/2014 by | | George | | | | | | Quan Potts DO | | al | | | | | + +--------+--------+ +--------+--------+--------+ | Screw Slf-Drl V/A 4.0x14mm - | | N/A: | SOFAMOR | | | [id number] | | [id number]: Qty: 4 on | | Spine | DANEK - DIV | | | 4 / / | | 09/15/2014 by Quan Potts | | George | [employer] | | | | | DO Renato | | al | - SFDK | | | | + +--------+--------+ +--------+--------+--------+ | Screw Slf-Drl V/A 4.0x16mm - | | N/A: | SOFAMOR | | | [id number] | | [id number]: Qty: 2 on | | Spine | [...] | 10/16/ | 00-771 | | - [id number]: Qty: 1 | | Hip | ZIMM | | 5 | 1-011- | | on 03/06/2015 by Michelle, | | | | | | 00 / | | Srinivas Johnson MD | | | | | | /21320 | | | | | | | | 422 | + +--------+--------+ +--------+--------+--------+ | Imp Hip Fem Hd Cocr 38/-4mm - | | Left: | CASI - | | 02/15/ | 01.010 | | [id number]: Qty: 1 | | Hip | ZIMM | | 4 | 12.385 | | on 03/06/2015 by Srinivas Martinez | | | | | | / | | MD Elizabeth | | | | | | /54176 | | | | | | | | 50 | + +--------+--------+ +--------+--------+--------+ | Imp Hip Tot Acet Shell Cnvg | | Left: | CASI - | | 07/07/ | 5360-0 | | 55 - [id number]: Qty: | | Hip | ZIMM | | 2023 | 0-055 | | 1 on 03/06/2015 by Michelle, | | | | | | / | | rSinivas Johnson MD | | | | | | /10968 | | | | | | | | 320 | + +--------+--------+ +--------+--------+--------+ | Screw Bone Slf-Tp 4.5x30 - | | Left: | CASI - | | 11/04/ | [id number] | | [id number]: Qty: 1 on | | Hip | ZIMM | | 2030 | 530 / | | 03/06/2015 by Srinivas Martinez | | | | | | /01003 | | MD Elizabeth | | | | | | 998 | + +--------+--------+ +--------+--------+--------+ | Imp Hip Acet Lnr Drasl 38x46 | | Left: | CASI - | | 07/07/ | 4376-3 | | - [id number]: Qty: 1 | | Hip | ZIMM | | 2020 | 8-055 | | on 03/06/2015 by Srinivas Martinez | | | | | | / | | C, MD | | | | | | /22000 | | | | | | | [...] | 3715 / | | 7 - [id number]: Qty: | | | SCIENTIFIC | | [...] | 3726 / | | 7 - [id number]: Qty: | | | SCIENTIFIC | | [...] | 3726 / | | 7 - [id number]: Qty: | | Pancre | SCIENTIFIC | | 2016 | | | 1 on 02/18/2017 by Idania, | | as | MACRINA - BSCI | | | /72509 | | MD ShayExplanted: Qty: 1 | | | | | | 493 | | on 06/26/2017 | | | | | | | + +-------+--------+ +--------+--------+--------+ | Stent Pancr Advnx Pgtl Lb 7f | Stent | N/A: | [facility] | | 01/19/ | [id number] | | 7 - [id number]: Qty: | | Pancre | SCIENTIFIC | | 2019 | 260 / | | 1 on 10/23/2017Explanted: | | as | MACRINA - BSCI | | | /[id number] | | Qty: 1 on 03/12/2018 | [...] | [facility] | | | | by [facility] [address], | | SACRED | | | | [place] [address] | | HEART | | | |Performed by [facility] [address], [place] [address] | | MEDICAL | | | | [...] + + | [facility] | [address] | [place] [address] | | | [facility] | | | | | [...] SACRED | | | | TroponinPerformed by [facility] | | HEART | | | | [address], | | MEDICAL | | | | [place] [address] | | CENTER | | | | [...] + + | [facility] | [address] | [place] [address] | | | [facility] | | | | | LABORATORY [...] ENCE | | | Immature | by [facility] [address], | K/uL | SACRED | | | Granulocyte | [place], [place] | | HEART | | | s |Performed by [facility] [address], [place], [place] | | MEDICA L | | [...] + + | [facility] | [address] | [place], [place] | | | HEART [facility] | | | | | LABORATORY [...] | | LABORATORY | | | | [facility] [address], | | [place] | | | | [place] [address] | | | | + + + + + + + + | Specimen | + + | Blood | + + + + + + + | Performing | Address | City/State/Zipcode | Phone Number | | Organization | | | | + + + + + | [facility] | [address] | [place] [address] | | | [facility] | | | | | [...] | | | POC | [facility] [address], | | SACRED | | | | [place] [address] | | HEART | | | |Performed by [facility] [address], [place] [address] | | MEDICAL | | | | [...] + + | [facility] | [address] | [place] [address] | | | [facility] | | | | | [place] | | | | + + + + + ERCP (02/15/2019 7:14 PDT) + + | Specimen | + + | | + + + + + | Narrative | Performed At | + + + | [place] | [place] | | [facility] | [facility]OVATION | | CenterGI | | | Patient Name: Arcenio Gomez Norm Procedure | | | Date: 02/15/2019 7:14 AMMRN: | | | [id number] Account Number: | | | [id number] of : 1960 Note | | | [...] | | | | | Findings: A graphics artist film of the abdomen | | | [...] show any filling defects. Then, a 7 Japanese by 7 | | | cm single [...] Addenda: 0 [place] [facility] | | | [facility] | | [...] +--------+ +---------+--------+ | MEDICARE | MEDICA | [id number] | | [phone] | | Medica | [...] | | jovany | | | [address] ([place]) | [place] [address] | + +--------+ +--------+ + + Advance Directives Patient has advance care planning documents, and code status on file. For more information, please contact:[facility] [place] [address] + + + + + | Code [...]
--- OUTSIDE RECORDS SUMMARY | ~2019-02-23 | XMS | Encounter Summary ---
Demographics + + + | Address | [address] | | | [place] [address] | + + + | Home Phone | | + + + | Preferred Language | Unknown | + + + | Marital Status | Single | + + + | Zoroastrian Affiliation | 1041 | + + + | Race | Unknown | + + + | Ethnic Group | Unknown | + + + Author + + + | Author | [facility] | | | and Yuvalana | + + + | Organization | [facility] | | | and [...] Team Providers + +------+ + | Care City Surveyor Name | Role | Phone | + +------+ + | Robert Garcia MD | PCP | Unavailable | + +------+ + Encounter Details +--------+ + + + + | Date | Type | Department | Care Team | Description | +--------+ + + + + | 11/24/ | Orders Only | [facility] | Jose Emerson MD | Chronic | | 2019 | | and Pancreas GI | [address] [place] | pancreatitis, | | | | [address] | [address] [place] | unspecified | | | | [address] | [address] | pancreatitis type | | | | [place], [place] | | (HCC) (Primary Dx) | | | | [address] | | | | | | [phone] | | | +--------+ + + + [...]
--- OUTSIDE RECORDS SUMMARY | ~2019-02-23 | XMS | Encounter Summary ---
Demographics + + + | Address | [address] | | | [place] [address] | + + + | Home Phone [...] + + + | Author | [facility] | | | and Yuvalana | + + + | Organization | [facility] | | | [...] Team Providers + +------+ + | Care Test Lead Application Testing Name | Role | Phone | + [...] | MED CTR PROVIDER | [address] | | | | | SURGICAL [address] | [place], [place] | | | | | [place], | [address] | | | | | [place] [address] | | | | | | [phone] | | | +--------+ + + + [...]
--- OUTSIDE RECORDS SUMMARY | ~2019-02-23 | XMS | Encounter Summary ---
Demographics + + + | Address | [address] | | | [place] [address] | + + + | Home Phone | | + + + | Preferred Language | Unknown | + + + | Marital Status | Single | + + + | Congregational Affiliation | 1041 | + + + | Race | Unknown | + + + | Ethnic Group | Unknown | + + + Author + + + | Author | [facility] | | | and Yuvalana | + + + | Organization | [facility] | | | [...] Providers + +------+ + | Care Customer Accounts Advisor Name | Role | Phone | + +------+ + | Robert Garcia MD | PCP | Unavailable | + +------+ + Encounter Details +--------+ + + + + | Date | Type | Department | Care Team | Description | +--------+ + + + + | 12/02/ | Anesthesia | [facility] | Eleazar Orr | | | 2019 | Event | MED CTR OR INTRA OP | DO [address] | | | | | [address] | [address] | | | | | [place] | [place] [address] | | | | | [address] | [phone] | | | | | [phone] | | | +--------+ + + + + Anesthesia Record + + + + + | Procedure Name | Responsible | Anesthesia Start | Anesthesia Stop Time | | | Anesthesiologist | Time | | + + + + + | LEFT EXTRACTION | Eleazar Armendariz | 12/02/18 1246 | 12/02/18 1322 | | CATARACT WITH LENS | DO Kirby | | | | IMPLANT (Left Eye) | | | | + + + + + +----+---+ + + | Da | T | Event | Comment | | te | i | | | | | m | | | | | e | | | +----+---+ + + | 07 | 1 | | | | /1 | 1 | | | | 8/ | 5 | | | | 20 | 8 | | | | 19 | | | | +----+---+ + + | | 1 | An Checkout | Pre-use anesthesia machine/equipment checkout. | | | 1 | | | | | 5 | | | | | 8 | | | +----+---+ + + | | 1 | An Start | Reassessment prior to anesthesia induction/procedure. | | | 2 | | | | | 4 | | | | | 6 | | | +----+---+ + + | | 1 | An Start | | | | 2 | Data | | | | 4 | | | | | 6 | | | +----+---+ + + | | 1 | An | | | | 2 | Induction | | | | 5 | | | | | 0 | | | +----+---+ + + | | 1 | Anesthesia | | | | 2 | Ready | | | | 5 | | | | | 1 | | | +----+---+ + + | | 1 | AN | Per surgeon request | | | 2 | Antibiotic | | | | 5 | declined | | | | 2 | | | +----+---+ + + | | 1 | Pre-Procedu | | | | 2 | ral Timeout | | | | 5 | Completed | | | | 6 | | | +----+---+ + + | | 1 | First | | | | 2 | Inc/Proc St | | | | 5 | | | | | 7 | | | +----+---+ + + | | 1 | an stop | | | | 3 | data | | | | 1 | | | | | 8 | | | +----+---+ + + | | 1 | An Stop | Patient handed off to recovery nurse. | | | 2 | | | | | 2 | | | +----+---+ + + +------+ | Meds | +------+ + +--------+ | Name | Total | + +--------+ | propofol | 70 mg | + +--------+ | lidocaine 2% | 60 mg | + +--------+ | lactated ringers (LR) infusion | 500 mL | + +--------+ + + | Name | + + | N2O Flow Rate (L/Min) | + + | O2 Flow Rate (L/Min) | + + | Insp O2 | + + | Exp SEV | + + | Air Flow Rate (L/Min) | + + + + | No blood administrations on file. | + + +--------+ + + + | Type | Details | Placement | Removal | +--------+ + + + | Periph | 12/02/18; 1245; Right; Mid; | 12/02/18 1245 by | 12/02/18 1349 by | | eral | Forearm; fsof-odo-izlzut catheter | PEGGY STAUFFER | Pedro Nassar RN | | IV | system; 22 gauge, 1 05/21 in | | | | | length; 4; Left &Right (2 | | | | | nurses); intradermal injection, | | | | | tolerated well; short term use; | | | | | 12/02/18; 1349 | | | +--------+ + + + | Wound | 12/02/18; 1314; Incision; Left; | 12/02/18 1314 by | 12/30/18 1039 by | | | eye; 12/30/18; 1039 | Andi Felder RN | Shruthi Aguilar RN | +--------+ + + + documented [...] | | | + +--------+ +-------+------+------+ | lidocaine (PF) 2% injection | Given | 12/03/19 | 60 mg | | | | Intravenous, PRN, Starting Gina | | 19 12:50 | | | | | 12/02/18 at 1250, Anesthesia | | PDT | | | | | Intra-op | | | | | | + +--------+ +-------+------+------+ +---+---+ | | | +---+---+ + +-------+ +-------+---+---+ | propofol (DIPRIVAN) injection | Given | 12/03/19 | 70 mg | | | | Intravenous, PRN, Starting Gina | | 19 12:50 | | | | | 12/02/18 at 1250, Anesthesia | | PDT | | | | | Intra-op | | | | | | + +-------+ +-------+---+---+ +---+---+ | | | +---+---+ documented in this encounter"
--- OUTSIDE RECORDS SUMMARY | ~2019-02-23 | XMS | Encounter Summary ---
Demographics + + + | Address | [address] | | | [place] [address] | + + + | Home Phone | | + + + | Preferred Language | Unknown | + + + | Marital Status | Single | + + + | Church Affiliation | 1041 | + + + | Race | Unknown | + + + | Ethnic Group | Unknown | + + + Author + + + | Author | [facility] | | | and Yuvalana | + + + | Organization | [facility] | | [...] Team Providers + +------+ + | Care Dude Wrangler Name | Role | Phone | + [...] | | | | | [address] | [place] | | | | | [place] | [id number] | | | | | [address] | | | | | | [phone] | | | +--------+ + + + [...] 12/30/18 110 by | | xi | [id number] catheter system; | PEGGY STAUFFER | Shruthi [...] | | | eye; 12/30/18; 1115 | Sandy Cross RN | Aiyana Cruz RN | [...]
--- OUTSIDE RECORDS SUMMARY | ~2019-02-23 | XMS | Encounter Summary ---
Demographics + + + | Address | [address] | | | [place] [address] | + + + | Home Phone | | + + + | Preferred Language | Unknown | + + + | Marital Status | Single | + + + | Jainism Affiliation | 1041 | + + + | Race | Unknown | + + + | Ethnic Group | Unknown | + + + Author + + + | Author | [facility] | | | and Yuvalana | + + + | Organization | [facility] | | | and [...] Team Providers + +------+ + | Care Infant Nanny Name | Role | Phone | + +------+ + | Robert Garcia MD | PCP | Unavailable | + +------+ + Encounter Details +--------+ + + + + | Date | Type | Department | Care Team | Description | +--------+ + + + + | 12/02/ | Anesthesia | [facility] | Eleazar Orr | | | 2019 | Event | [facility] | DO [address] | | | | | [address] | [address] | | | | | [place] | [place] [address] | | | | | [phone] | [phone] | | | | | [phone] | | | +--------+ + + + [...] [address] | | eral | Forearm; [id number] catheter | PEGGY STAUFFER | Pedro Nassar [...]
[~2019-02-23 14:02] MED LIST changes: +LOMOTIL TABLET1 EACH PO
--- OUTSIDE RECORDS SUMMARY | 2019-02-23 14:04 | XMS ---
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 E.Adolfo [facility] COUNT (12 MO.) [facility] [address] [place] [address] TOTAL 3 NOTE: Visits indicate total known visits. ED/UCC VISIT TRACKING (12 MO.) 02/23/2019 14:02 [facility] [place] TYPE: Emergency COMPLAINT: - FAST HEART RATE 02/15/2019 11:27 [facility] 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
[2019-02-23] MEDS ORDERED: TRANSDERM-SCOP1 EACH TD (14:15)
[2019-02-23] MEDS ORDERED: ONDANSETRON ODT8 MG PO (14:15)
--- NOTE | 2019-02-23 17:59 | EKG ---
[facility] [address] [facility] [place] [address] Signed Sinus rhythm with frequent premature ventricular complexes Right axis deviation Right ventricular hypertrophy Nonspecific ST and T wave abnormality Abnormal ECG When compared with ECG of 28-JUL-2017 17:18, premature ventricular complexes are now present ST now depressed in Anterior leads Nonspecific T wave abnormality now evident in Anterior leads Confirmed by JOHNNIE RAMOS MD ([id number]) on 02/23/2019 5:59:36 PM Electronically Signed By: JOHNNIE RAMOS MD 02/23/19 1759 PATIENT NAME: LEATHA FERRARO Electrocardiogram DATE OF : 62 PHYSICIAN: JOHNNIE RAMOS MD REPORT #: [id number] REPORT IS CONFIDENTIAL AND NOT TO BE RELEASED WITHOUT AUTHORIZATION
== END 2019-02-23 16:32 | disposition home or self-care (01) ==
LOC: ED 14:02
DX: I49.3 Ventricular premature depolarization (principal); F17.200 Nicotine dependence, unspecified, uncomplicated; Z21 Asymptomatic human immunodeficiency virus [HIV] infection status; Z88.1 Allergy status to other antibiotic agents; Z88.3 Allergy status to other anti-infective agents
CPT/HCPCS: 36415; 80053; 84443; 84484; 85025; 93005; 93010; 99285-25

== ENCOUNTER 2020-03-25 12:09 | Inpatient (IN) | payer MEDICARE, OTHER, MEDICAID ==
[~2020-03-25] VITALS: Ht 185.4 cm; Wt 80.3 kg
[~2020-03-25 12:09] MED LIST changes: +ONDANSETRON ODT8 MG PO; +TRANSDERM-SCOP1 EACH TD
[2020-03-25] MEDS ORDERED: CLINDAMYCIN HC300 MG PO (14:32)
[2020-03-25] MEDS ORDERED: ZENPEP DR 40,01 EACH PO (14:34)
[2020-03-25] MEDS ORDERED: CARVEDILOL3.125 MG PO (14:35)
[2020-03-25] MEDS ORDERED: CENTRUM ADULTS1 EACH PO (15:56)
[2020-03-25] MEDS ORDERED: OMEPRAZOLE20 M2 PO (15:58)
--- NOTE | 2020-03-25 18:34 | NUR ---
INCYTE COVID SWAB COLLECTED
--- NOTE | 2020-03-25 19:30 | NUR ---
RECEIVED REPORT AT 1900, FOUND PT IN BED READING. PT HAD NO NEED AT THAT TIME.
--- NOTE | 2020-03-25 21:15 | NUR ---
ALL LOBES ARE CLEAR, PT IS AFEBRILE AT THIS TIME, PT AAOX4, RIGHT INDEX FINGER HAS SOME EDEMA PRESENT AND IS BLUE IN COLOR NAD HAS AN INCISION SITE PRESENT ON ITS LATERAL SIDE. DRESSING HAS A SCANT AMOUNT OF SEROUS FLUID PRESENT. CAP REFILL IS <2SEC AT THIS TIME. PT HAS SOME NUMBNESS ON INCISION SITE. BP IS STILL ELEVATED AT THIS TIME. OTHER V/S ARE WDL, REDNESS IS STILL EXTENDING UP THE RUE. WILL CONTINUE TO MONITOR.
--- NOTE | 2020-03-25 23:44 | NUR ---
PT IS AWAKE IN ROOM EATING A SANDWICH. PT HAD NO OTHER NEEDS.
--- NOTE | 2020-03-26 01:33 | NUR ---
MD JARAMILLO WAS CALLED FOR LOW BP. NO NEW ORDERS WERE RECEIVED. PT STATED THAT HIS BP'S ARE LOW DURING THE NIGHT USUSALLY. CAPREFILL IS STILL <2SEC ON RIGHT INDEX FINGER. INCISION SITE IS PURPLE/BLUE. PT ALSO IS HAVING INCREASED EDEMA PRESENT ON HIS RIGHT FOREARM WHICH WAS NOT PRESENT EARLIER THIS SHIFT. PT IS AFEBRILE STILL BUT DOES HAVE A HEADACHE. PRN TYLENOL WAS GIVEN. WILL CONTINUE TO MONITOR.
--- NOTE | 2020-03-26 02:11 | NUR ---
PT STATED THAT HIS HEADACHE MAY BE DUE TO LOW BLOOD SUGAR. ACCU CHECK WAS DONE AND HIS BG WAS 161. EDEMA ON RUE WAS TRACED WITH A PEN. WILL CONTINUE TO MONITOR.
--- NOTE | 2020-03-26 03:00 | NUR ---
PT STATED THAT HIS HEADACHE WAS GONE. RIGHT ARM LOOKS UNCHANGED SINCE LAST ASSESSMENT. NO NEW CONCERNS NOTED AT THIS TIME. WILL CONTINUE TO MONITOR.
--- NOTE | 2020-03-26 06:34 | NUR ---
REDNESS IN RIGHT FOREARM IS WORSE THIS MORNING THAN AT START OF SHIFT. THERE IS ALSO MORE EDEMA PRESENT. THE INCISION SITE ITSELF HAS REMAINED UNCHANGED SINCE START OF SHIFT. CAP REFILL <3SEC. PT HAS BEEN AFEBRILE ALL SHIFT SO FAR. PT DID HAVE LOW BP AT 0100 AND MD JARAMILLO WAS NOTIFIED. BP AT THIS TIME IS STILL SOFT BUT BETTER. PT WAS ASYMPTOMATIC WITH LOW BP. A DRESSING IS IN PLACE ON RIGHT INDEX FINGER WITH NON-STICK GAUZE AND COBAND SINCE THERE IS A SCANT AMOUNT OF SEROUSSANG. FLUID PRESENT. PT ALSO STATED URINARY URGENCY AND FREQUENCY SINCE ALL THIS STARTED.
--- NOTE | 2020-03-26 07:45 | NUR ---
this rn received report from spike gaitan. pt laying in bed reading his book on his phone. this rn and spike gaitan inspected pts right arm. pt states that he is getting some numbness at this tip of his finger, there is cap-refill noted but the nail bed is constanly white. this rn called to notify him about the new numbness in pts right pointer finger
--- NOTE | 2020-03-26 10:10 | NUR ---
PATIENT IND IN ROOM. CALL LIGHT IN REACH. NO FURTHER NEEDS AT THIS TIME.
--- NOTE | 2020-03-26 10:15 | NUR ---
THIS RN IN PTS ROOM TO GIVE PT HIS JASMINE CLARK AND DO PTS MORNING ASSESSMENT. PT STATES THAT HIS PAIN IS 4/10. PT STATES THAT THIS PAIN IS TOLERABEL. PT STATES THAT HE STILL HAS MINIMAL NUMBNESS IN THE TIP OF HIS RIGHT POINTER FINGER. REDNESS UP PTS ARM (STREAKING) NOTED BUT NO CHANGE, FINGER STILL HAS A PURPLE SWOLLEN AREA ON HIS FINGER
--- NOTE | 2020-03-26 14:06 | NUR ---
PATIENT IND IN ROOM. PATIENT IN BED AT THIS TIME. FRESH WATER GIVEN. CALL LIGHT IN REACH. NO FURTHER NEEDS AT THIS TIME.
--- NOTE | 2020-03-26 14:30 | NUR ---
Spoke with Arcenio for CM assessment. He lives along and is "independent and self sufficent". Denies needs when he discharges. Plans on dc tomorrow or the next day when antibiotics are complete. Parents are his emergency contact, but he request they are not called unless it is an extreme emergency. He states his parents are eldery.
--- NOTE | 2020-03-26 18:07 | NUR ---
THIS RN IN PTS ROOM TO GIVE EVENING MEDS. PT SITTING UP IN BED. PT VERY PLEASANT AND IN GOOD SPIRITS THIS EVENING DESPITE THE FACT THAT HIS RIGHT POINTER FINGER APPEARS TO BE A TAD MORE SWOLLEN TONIGHT THAN IT DID THIS AM. PTS WRIST ALSO APPEARS TO BE REDDER THAN THIS AM BUT IS ONLY WARM TO THE TOUCH.
--- NOTE | 2020-03-26 19:30 | NUR ---
RECEIVED REPORT [id number], FOUND PT AWAKE IN BED. PT HAD NO NEW CONCERNS AT THAT TIME.
--- NOTE | 2020-03-26 20:30 | NUR ---
FRAME CATCHER ROUNDING NOTE. PT RESTING IN BED WITH PRIMARY RN AT BEDSIDE. PT DENIES NEEDS, QUESTIONS, OR CONCERNS. CALL LIGHT IN REACH. WHITE BOARD UDPATED.
--- NOTE | 2020-03-26 20:45 | NUR ---
BP IS 165 SYSTOLICALLY AT THIS TIME. RIGHT INDEX FINGER IS OPEN TO AIR AND DRY WITH INCREASED PURPLE SKIN COLOR AND INCREASED EDEMA SINCE LAST NIGHT. PT IS AFEBRILE SO FAR. LOBES ARE CLEAR, NO OTHER PERIPHERAL EDEMA NOTED, PT STILL HAS URINARY URGENCY/FREQUENCY PRESENT. WILL CONTINUE TO MONITOR.
--- NOTE | 2020-03-26 23:19 | NUR ---
PT IS SLEEPING AT THIS TIME.
--- NOTE | 2020-03-27 00:10 | NUR ---
POST BOLUS BP 101/58. PT STATES HE IS FEELING LESS FOGGY. BP MONITOR SET TO MEASURE BP EVERY 15MIN.
--- NOTE | 2020-03-27 01:57 | NUR ---
PT IS SLEEPING AT THIS TIME. NO NEW CONCERNS WERE NOTED AT THIS TIME.
--- NOTE | 2020-03-27 03:00 | NUR ---
PT IS SLEEPING AT THIS TIME.
--- NOTE | 2020-03-27 06:07 | NUR ---
PT OVERALL HAD AN UNEVENTFUL NIGHT. THIS MORINIG HIS RUE HAS A BIT LESS REDNESS PRESENT AND ALSO A BIT LES EDEMA. HIS RIGHT INDEX FINGER LOOKS WORSE THIS MORNIG FAR DISCOLORATION IS CONCERNED. FINGER IS STILL WARM TO TOUCH AND PT DENIES NUMBNESS AT THIS TIME. NO OTHER CONCERNS WERE NOTED SO FAR.
--- NOTE | 2020-03-27 07:00 | NUR ---
BEDSIDE HANDOFF REPORT RECEIVED FROM AUTOMOBILE INSPECTOR RN. PT RESTING IN BED. PT DENIES NEEDS AT THIS TIME.
--- NOTE | 2020-03-27 08:20 | NUR ---
PT RESTING IN BED. PT ON ROOM AIR, LUNG SOUNDS CLEAR, DENEIS SOB. PT WITH REDNESS TO RIGHT HAND ARM AND SECOND FINGER, PT REPORTS IT IS NOT IMPROVING. BOWEL TONES ACTIVE, DENIES NAUSEA. IV SALINE LOCKED TO RIGHT ARM. PT WITHOUT EDEMA, CMS INTACT. PT INDEPENDENT IN ROOM. BREAKFAST AT BEDSIDE, PT DENIES OTHER NEEDS AT THIS TIME.
--- NOTE | 2020-03-27 09:00 | NUR ---
IV VANCO INFUSION STARTED TO RIGHT FOREARM IV. PT RESTING INBED. PT DENIES NEEDS AT THIS TIME.
--- NOTE | 2020-03-27 09:54 | NUR ---
PATIENT IND IN ROOM. AM CARE SUPPLIES ARE AT SINK FOR PATIENT. PATIENT SLOWLY WORKING ON YOGURT AND COFFEE FOR BREAKFAST. CALL LIGHT IN REACH. NO FURTHER NEEDS AT THIS TIME. WANTS TO SHOWER LATER.
--- NOTE | 2020-03-27 10:15 | NUR ---
IV VANCO INFUSION COMPLETED. IV SALINE LOCKED. PLANTING MACHINE OPERATOR TO ASSIST PT WITH SHOWER SET-UP. PT DENIES OTHER NEEDS AT THIS TIME.
--- NOTE | 2020-03-27 11:00 | NUR ---
PT SITTING ON EDGE OF BED. PT REPORT OF NEW REDDENED AREAS TO RIGHT 1ST TOE AND RIGHT 3RD TOE, WITHOUT REDNESS TO RIGHT LEG. WILL CONTINUE TO MONITOR AND REPORT TO MD DURING ROUNDING.
--- NOTE | 2020-03-27 11:53 | NUR ---
DR. JARAMILLO ROUNDED ON PT, DISCUSSED NEW REDDENED AREAS ON RIGHT FOOT. PLAN TO DRAW LABS AND CONTINUE IV ABX. PT DENIES OTHER NEEDS AT THIS TIME.
--- NOTE | 2020-03-27 14:12 | NUR ---
PT ALERT, ORIENTED AND LAYING IN BED READING. PT IS PLEASANT, EXPLAINED THAT THIS SOMETHING NEW BUT THAT HE HAS BEEN DEALING WITH MAJOR HEALTH ISSUES FOR THE PAST 21 YRS. GAVE ENCOURAGEMENT, PT ASKED IF I WOULD CHECK WITH HIM TOMORROW REGARDING VISIT FROM . WILL FOLLOW NEEDED
--- NOTE | 2020-03-27 14:15 | NUR ---
PT RESTING IN BED. PT ON ROOM AIR, LOLI GSOUND CLEAR. RIGHT INDEX FINGER CONTINUES TO BE SWOLLEN AND REDDISH PURPLE, UNCHANGED FROM THIS AM. RIGHT FOOT REDDENED AREAS UNCHANGED. PT DENIES OTHER NEEDS AT THIS TIME.
--- NOTE | 2020-03-27 16:50 | NUR ---
Spoke with Arcenio. He is feeling better, does not feel finger is better. Plans on walking in man. States he is bored. Declines word search, coloring book, or puzzle.
--- NOTE | 2020-03-27 18:28 | NUR ---
PT WITH NEW REDDENED AREAS TO RIGHT GREAT TOE AND 4TH TOE, REDNESS TO ARM SLIGHTLY IMPROVED, RECEIVING VANCO AND ROCEPHIN. PT ON ROOM AIR, LUNG SOUNDS CLEAR. INDEPENDENT IN ROOM. PT WITH POOR APPETITE. VOIDING QS.
--- NOTE | 2020-03-27 18:57 | NUR ---
PATIENT IN BED RESTING. CALL LIGHT IN REACH. NO FURTHER NEEDS AT THIS TIME.
--- NOTE | 2020-03-27 20:20 | NUR ---
V/S AND I&O TAKEN AND CHARTED BY PRIMARY RN STANLEY. DENIES OF ANY NEEDS AT THIS TIME.
--- NOTE | 2020-03-27 22:10 | NUR ---
CALL LIGHT ANSWERED. IV ABX COMPLETE. IV SL AT THIS TIME. BLOOD PRESSURE ASSESSED, RESULTS SHARED WITH PRIMARY RN. PT REORTS HE IS "RELAXED AND READY FOR BED". SPRITE X 2 GIVEN PER PT REQUEST. NO FURTHER NEEDS. CALL LIGHT IN REACH.
--- NOTE | 2020-03-27 22:25 | NUR ---
IN ROOM TO SALINE LOCK IV. VITAL SIGNS TAKEN TO RECHECK PT WAS RUNNING HYPERTENSIVE. BP NOW WITHIN PT'S NORMAL RANGE AFTER TAKING SCHEDULED COREG. PT DENIES FURTHER NEEDS AT THIS TIME
--- NOTE | 2020-03-27 23:19 | NUR ---
PT CALLED AND REPORTS THAT HE FEELS IF HIS BP IS "DROPPING TOO LOW". BP BY MACHINE WAS 79/45 MAP (53). MANUAL BP READS AT 68/42. CALL IN TO DR WICK. ORDER FOR 1L BOLUS OF LR TO BE ADMINISTERED NOW.
--- NOTE | 2020-03-27 23:20 | NUR ---
DR WICK IN ROOM WITH PT. RECHECK BLOOD PRESSURES MID 80S/50S. IV BOLUS IN FUSING. PER DR. WICK VERBAL ORDER, VTBI TO BE REDUCED TO 500ML. INFUSION PUMP ADJUSTED TO NEW VOLUME. PT STATES HE FEELS "FOGGY". PT'S SPEECH IS SLOW AND QUIET. THIS NURSE IN ROOM WITH PT.
--- NOTE | 2020-03-28 00:15 | NUR ---
BP STAYING WITHIN PT'S NORMAL RANGE. CURRENT BP 95/52. PT AWAKE WATCHING A MOVIE ON HIS PHONE.
--- NOTE | 2020-03-28 01:45 | NUR ---
NEW IV STARTED IN LEFT FA. IV IN RIGHT FA LEAKING. PT STATES HE IS ANXIOUS TO FALL ASLEEP BECAUSE IT "FEELS STRANGE" WHEN HE STARTS TO FALL ASLEEP; LIKE HE IS "DRIFTING OR SINKING" RATHER THAN FALLING ASLEEP. BP REMAINS CONSISTENTLY 95/58. CALL LIGHT WITHIN REACH. WILL CONTINUE TO CHECK IN ON PATIENT FREQUENTLY.
--- NOTE | 2020-03-28 06:05 | NUR ---
PT BECAME SYMPTOMATICALLY HYPOTENSIVE THIS SHIFT WITH A MANUAL BP OF 68/42. DR WICK ORDERED A 500ML LR BOLUS WHICH DID HOLD THE BP IN MID 90S/50S FOR THE REST OF THIS SHIFT. PT REPORTED THAT HE FELT ANXIOUS TO FALL ASLEEP IN FEAR HE "MAY NOT WAKE UP" THUS PT SLEPT VERY LITTLE THIS SHIFT. PAIN WAS REPORTED AN ACHE AND WAS MANAGED WITH A ONE TIME DOSE OF NAPROXEN. PT BECAME A SBA TO TOILET WHEN HYPOTENSIVE. LESIONS DID NOT INCREASE THIS SHIFT.
--- NOTE | 2020-03-28 07:39 | NUR ---
this rn received report from estella gaitan. pt sitting up in bed and answering all questions well. pt states that pain is tolerable but would like a naproxen later this am. pts redness looks improved since the last time this rn had pt
--- NOTE | 2020-03-28 08:17 | NUR ---
PATIENT RESTING IN BED. WHITE BOARD UPDATED. PATIENT REFUSED TO TAKE A SHOWER TODAY BECAUSE HE SAID TOOK A SHOWER YESTERDAY AND HIS SKIN IS TOO DRY. CALL LIGHT WITHIN REACH. NO OTHER NEEDS AT THIS TIME
--- NOTE | 2020-03-28 09:21 | NUR ---
PATIENT SITTING UP ON THE EDGE OF THE BED. VITAL SIGNS AND I&O DONE. CALL LIGHT WITHIN REACH. NO OTHER NEEDS AT THIS TIME
--- NOTE | 2020-03-28 09:36 | NUR ---
THIS RN IN PTS ROOM TO GIVE MORNING MEDS AND DO MORNING ASSESSMENT. PT STATES THAT HIS NAUSEA IS SLIGHTLY IMPROVED WITH THE ZOFRAN. PT STATES THAT HE THINKS THAT HIS GI UPSET IS FROM THE ANTIBIOTICS, PT STATES THAT HE HAS HAD THIS PROBELM IN THE PAST.
--- NOTE | 2020-03-28 11:07 | NUR ---
Spoke with Arcenio. States he feels better, red streak cont. up his arm. Awaiting to determine plan for dc. Pt. plans on dc to home when cleared by Dr. Guadalupe.
[2020-03-28] MEDS ORDERED: DOXYCYCLINE HY100 MG PO (12:55)
[2020-03-28] MEDS ORDERED: NAPROXEN500 MG PO (12:56)
--- NOTE | 2020-03-28 13:58 | NUR ---
PATIENT SITTING UP IN BED. VITAL SIGNS DONE BY RN BEFORE TO DISCHARGE. I&O DONE.
--- NOTE | 2020-03-28 14:18 | NUR ---
PT STANDING, GETTING FOR C. PT DRESSED, FEELING MUCH BETTER AND IN GOOD SPIRITS. PT THANKFUL FOR CARE HE HAS RECEIVED. GAVE BLESSING
== END 2020-03-28 13:40 | disposition home or self-care (01) | DRG 603 ==
LOC: ED 12:09 → MS 12:11
PROVIDERS: ADMIT Internal Medicine; ATTEND Internal Medicine
DX: A46 Erysipelas (principal); L03.021 Acute lymphangitis of right finger; Z20.828 Contact with and (suspected) exposure to other viral communicable diseases; I48.0 Paroxysmal atrial fibrillation; F51.04 Psychophysiologic insomnia; F17.210 Nicotine dependence, cigarettes, uncomplicated; Z21 Asymptomatic human immunodeficiency virus [HIV] infection status; Z79.899 Other long term (current) drug therapy; Z88.8 Allergy status to other drugs, medicaments and biological substances
CPT/HCPCS: 36415; 80048; 80053; 80202; 85025; 85610; 85651; 85730; 86140; 86160; 86359; 86360; 87070; 87075; 87205; 90686; 96374; 99284-25; J0295; J0696; J1650; J2405; J3370; J7060; J7121

== ENCOUNTER 2020-10-20 11:44 | Emergency (ER) | payer MEDICARE, OTHER, MEDICAID ==
[~2020-10-20] VITALS: Ht 185.4 cm; Wt 85.7 kg
[~2020-10-20 11:44] MED LIST changes: +CARVEDILOL3.125 MG PO; +CENTRUM ADULTS1 EACH PO; +CLINDAMYCIN HC300 MG PO; +DOXYCYCLINE HY100 MG PO; +NAPROXEN500 MG PO; +OMEPRAZOLE20 M2 PO; +ZENPEP DR 40,01 EACH PO
--- OUTSIDE RECORDS SUMMARY | 2020-10-20 11:48 | XMS ---
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 EBonnie VISIT COUNT (12 MO.) 2 [facility] TOTAL 2 NOTE: Visits indicate total known visits. 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
--- NOTE | 2020-10-21 20:11 | EKG ---
[facility] [address] [place] [address] Signed Normal sinus rhythm Left axis deviation Right bundle branch block Abnormal ECG When compared with ECG of 20-JUN-2019 20:20, QRS axis shifted left Nonspecific T wave abnormality now evident in Lateral leads Confirmed by RADHA JARAMILLO MD ([id number]) on 10/21/2020 8:11:21 PM Electronically Signed By: RADHA JARAMILLO MD 10/21/202010 PATIENT NAME: LEATHA FERRARO DONNA Electrocardiogram DATE OF : 62 PHYSICIAN: RADHA JARAMILLO MD REPORT #: [id number] REPORT IS CONFIDENTIAL AND NOT TO BE RELEASED WITHOUT AUTHORIZATION
== END 2020-10-20 20:02 | disposition home or self-care (01) ==
LOC: ED 11:44
DX: I67.1 Cerebral aneurysm, nonruptured (principal); R51.9 Headache, unspecified; I48.91 Unspecified atrial fibrillation; Z21 Asymptomatic human immunodeficiency virus [HIV] infection status; F17.200 Nicotine dependence, unspecified, uncomplicated; Z88.8 Allergy status to other drugs, medicaments and biological substances; Z79.899 Other long term (current) drug therapy
CPT/HCPCS: 62270; 70496; 70498; 71045; 80053; 81001; 82945; 83735; 84157; 84484; 85025; 85032; 87070; 87205; 89051; 93005; 93010; 99284-25; Q9967

== ENCOUNTER → 2021-07-20 | Emergency (ER) | payer MEDICARE, OTHER, MEDICAID ==
[~2021-07-20] VITALS: Ht 185.4 cm; Wt 85.7 kg
[~2021-07-20] MED LIST changes: +AMOX TR-K CLV1 EAC1 PO; +BACLOFEN20 MG PO; +DULOXETINE HCL30 MG PO; +TRAZODONE HCL50 MG PO
--- OUTSIDE RECORDS SUMMARY | 2021-07-20 10:34 | XMS ---
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 Marisa VISIT COUNT (12 MO.) 2 [facility] TOTAL 2 NOTE: Visits indicate total known visits. ED/UCC VISIT TRACKING (12 MO.) 07/20/2021 10:33 [facility] TYPE: Emergency COMPLAINT: - DIZZY,LIGHTHEADED 10/20/2020 11:[address] [facility] OR TYPE: Emergency COMPLAINT: - AFIB, WEAKNESS DIAGNOSES: - Allergy status to other drugs, medicaments and biological substances - Nicotine dependence, unspecified, uncomplicated - Unspecified atrial fibrillation - Cerebral aneurysm, nonruptured - Headache, unspecified - Other senior care (current) drug therapy INPATIENT VISIT TRACKING (12 MO.) No inpatient visits to display in this time frame [email or web address]
--- NOTE | 2021-07-21 15:19 | EKG ---
[facility] [address] [place] [address] Signed Sinus rhythm with 1st degree AV block Left axis deviation Right bundle branch block Abnormal ECG When compared with ECG of 20-OCT-2020 11:58, No significant change was found Confirmed by RADHA JARAMILLO MD ([id number]) on 07/21/2021 3:19:14 PM Electronically Signed By: RADHA JARAMILLO MD 07/21/21 1519 PATIENT NAME: RONANLEATHA DONNA Electrocardiogram DATE OF : 62 PHYSICIAN: RADHA JARAMILLO MD REPORT #: [id number] REPORT IS CONFIDENTIAL AND NOT TO BE RELEASED WITHOUT AUTHORIZATION
== END ==
LOC: ED 10:32
DX: K52.9 Noninfective gastroenteritis and colitis, unspecified (principal); R42 Dizziness and giddiness; I48.91 Unspecified atrial fibrillation; Z21 Asymptomatic human immunodeficiency virus [HIV] infection status; F17.200 Nicotine dependence, unspecified, uncomplicated; Z88.8 Allergy status to other drugs, medicaments and biological substances; Z79.899 Other long term (current) drug therapy
CPT/HCPCS: 36415; 80048; 83735; 85025; 93005; 93010; J2405; J7030

== ENCOUNTER 2022-04-24 00:51 | Emergency (ER) | payer MEDICARE, MEDICAID ==
[~2022-04-24] VITALS: Ht 185.4 cm; Wt 83.9 kg
--- OUTSIDE RECORDS SUMMARY | 2022-04-24 00:54 | XMS ---
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: [facility] PHONE: [phone] [facility] 07/22/2021-Current PHONE: Unknown Harpal has no Care Guidelines for this patient. Marisa VISIT COUNT (12 MO.) 2 [facility] TOTAL 2 NOTE: Visits indicate total known visits. 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
[2022-04-24] MEDS ORDERED: LIDOCAINE-PRILOC5 GM (01:14)
[2022-04-24] MEDS ORDERED: CLORAZEPATE DI7.5 MG PO (01:14)
[2022-04-24] MEDS ORDERED: CYPROHEPTADINE H4 MG PO (01:14)
[2022-04-24] MEDS ORDERED: BELSOMRA20 MG PO (01:15)
[2022-04-24] MEDS ORDERED: HYDROCODON-ACE1 EA10 PO (06:14)
== END 2022-04-24 06:35 | disposition home or self-care (01) ==
LOC: ED 00:51
DX: R51.9 Headache, unspecified (principal); I48.91 Unspecified atrial fibrillation; Z21 Asymptomatic human immunodeficiency virus [HIV] infection status; F17.200 Nicotine dependence, unspecified, uncomplicated; Z88.8 Allergy status to other drugs, medicaments and biological substances; Z79.899 Other long term (current) drug therapy
CPT/HCPCS: 36415; 70450; 70496; 70498; 80053; 85025; 85610; 99284-25; Q9967

== ENCOUNTER 2024-07-22 13:52 | Emergency (ER) | payer MEDICARE, MEDICAID, OTHER ==
[~2024-07-22] VITALS: Ht 185.4 cm; Wt 84.7 kg
[~2024-07-22 13:52] MED LIST changes: +BELSOMRA20 MG PO; +CLORAZEPATE DI7.5 MG PO; +CYPROHEPTADINE H4 MG PO; +HYDROCODON-ACE1 EA10 PO; +LIDOCAINE-PRILOC5 GM
[2024-07-22 14:22] LABS: MCHC 33.7 g/dl (30-36); RDW 13.8 (10.5-15.0)
[2024-07-22] MEDS ORDERED: MORPHINE SULFATE 4 MG/ML VIAL IV ONE ×3 (14:30→17:00)
[2024-07-22] MEDS ORDERED: SODIUM CHLORIDE 0.9% 1,000 ML IV ONE (14:30)
[2024-07-22] MEDS ORDERED: ondansetron HCL 4 MG/2 ML VIAL IV ONE (14:30)
[2024-07-22 14:35] LABS: BASOPHILS 0.3 % (0-2); HEMOGLOBIN 14.2 g/dL (12.0-18.0); LYMPHOCYTES 9.5 % (24-44); MCH 30.7 (27-36); MCV 91.1 fl (81-99); MONOCYTES 6.1 % (0-12); NEUTROPHILS 84.1 % (39-80); PLATELET COUNT 264 K/uL (140-440); RBC 4.61 M/ul (4.3-5.7)
[2024-07-22 14:48] LABS: ALBUMIN 4.3 g/dL (3.4-5.0); ALBUMIN/GLOBULIN RATIO 1.48 (1.1-2.4); ANION GAP 11.5 (7-21); BILIRUBIN, TOTAL 0.5 mg/dL (0.2-1.0); BUN/CREATININE RATIO 21.59 (6.0-28.6); CALCIUM 9.4 mg/dL (8.5-10.1); CREATININE, SERUM 0.88 mg/dL (0.70-1.30); POTASSIUM 3.5 mmol/L (3.5-5.1); PROTEIN, TOTAL 7.2 g/dL (6.4-8.2)
[2024-07-22 15:20] LABS: BILIRUBIN, URINE NEGATIVE (negative); BLOOD/HGB, URINE NEGATIVE (Negative); KETONE, URINE NEGATIVE (Negative); LEUK ESTERASE, URINE NEGATIVE (negative); NITRITE, URINE NEGATIVE (negative)
[2024-07-22] MEDS ORDERED: PIPERACILLIN/TAZOBACTAM 4.5 GM in SODIUM CHLORIDE 0.9% 100 ML IV ONE (16:30)
[2024-07-22] MEDS ORDERED: PIPERACILLIN/TAZOBACTAM 4.5 GM VIAL ONE (16:32)
[2024-07-22] MEDS ORDERED: MORPHINE SULFATE 10 MG/ML VIAL IV ONE (18:30)
[2024-07-22] MEDS ORDERED: LACTATED RINGER'S 1,000 ML IV SCH (20:00)
[2024-07-22] MEDS ORDERED: ondansetron HCL 4 MG/2 ML VIAL IV PRN (20:00)
[2024-07-22] MEDS ORDERED: HYDROmorphone HCL 1 MG/ML SYR IV ONE (21:00)
[2024-07-22 21:45] VITALS: BP 135/77
== END 2024-07-22 21:45 | disposition short-term general hospital (02) ==
LOC: ED 13:52
PROVIDERS: Emergency Medicine
DX: K57.20 Diverticulitis of large intestine with perforation and abscess without bleeding (principal); I48.91 Unspecified atrial fibrillation; F17.200 Nicotine dependence, unspecified, uncomplicated; Z21 Asymptomatic human immunodeficiency virus [HIV] infection status; Z88.8 Allergy status to other drugs, medicaments and biological substances; Z79.899 Other long term (current) drug therapy; Z79.82 Long term (current) use of aspirin
CPT/HCPCS: 36415; 74177; 80053; 81003; 83690; 85025; 87040; 96375; 96376; 99285-25; J1171; J2270; J2405; J2543; J7030; J7121; Q9967